=== PATIENT | female | born 1940 | race African-American/Black ===

== ENCOUNTER 2020-02-07 06:45 | Inpatient (IN) | payer MEDICARE, BC ==
[~2020-02-07] VITALS: Ht 167.6 cm; Wt 86.6 kg
[2020-02-07] MEDS ORDERED: AMLODIPINE BES2.5 MG ORAL (06:48)
[2020-02-07] MEDS ORDERED: HYDROXYZINE HCL10 M1 PO (06:49)
[2020-02-07] MEDS ORDERED: OMEPRAZOLE10 M1 ORAL (06:49)
[2020-02-07] MEDS ORDERED: SYNTHROID25 MCG ORAL (06:49)
--- NOTE | 2020-02-07 06:49 | Emergency Room Report ---
History of Present Illness General Chief Complaint: Overdose Source: EMS (Venkata Og MD) Present Illness HPI Disclaimer: Please note that this report is being documented using DRAGON technology. This can lead to erroneous entry secondary to incorrect interpretation by the dictating instrument. HPI: 79-year-old female presents for evaluation of altered mental status and possible overdose. According to EMS, daughter called from home stating her mother has been increasingly confused and depressed since 8 PM last night. She is concerned she may have overdosed on tramadol which she takes for her fibromyalgia pain as she goes unable to find the bottle. Also reports taking an unknown amount of Tylenol 500 mg tablets last night. No reported vomiting, fevers. The patient is emotional, crying on arrival and refusing to answer questions. Per EMS vital signs were stable en route and the patient was initially talking to them. She arrives with a wristband from a nearby hospital reportedly hospitalized last week for fibromyalgia pain. Patient is not answering any questions at this time, crying, complaining of body wide pain. No reported prior suicidal attempts. PMH: Fibromyalgia, hypertension PSH: Left knee repair Allergies: Insulin Social Hx: Could not obtain from patient (Venkata Og MD) Allergies: Coded Allergies: PENICILLINS (Verified Allergy, Unknown, 02/07/20) COVID-19 Screening Contact w/high risk pt: No Recent Travel to affected area: No Experienced COVID-19 symptoms?: No COVID-19 Testing performed WIRELESS SALES ASSOCIATE: No (Venkata Og MD) Review of Systems All Other Systems: limited - Patient refusing to answer questions (Venkata Og MD) Physical Exam Vital Signs Date Time Temp Pulse Resp B/P (MAP) Pulse Ox O2 Delivery O2 Flow Rate FiO2 02/07/20 06:34 156/93 (114) General: Awake and alert, tearful and emotional HEENT: NC/AT. EOMI. Cardiovascular: RRR. S1 and S2 normal. No murmur appreciated Resp: Normal work of breathing. No cough, wheezing or crackles appreciated Abdomen: Abdomen is soft, nondistended. Nontender Skin: Intact. Scar over left knee is clean dry and intact MSK: Normal tone and bulk. Moving all extremities. No obvious deformity. Neuro: Awake and alert. Emotional, crying, speaking clearly though refusing to answer questions (Venkata Og MD) Medical Decision Making Diagnostic Impression: Primary Impression: Depression Additional Impressions: Suicidal ideation UTI (urinary tract infection) ER Course Is a 79-year-old female presenting by EMS from home over altered mental status since 8 PM last night and concern over possible overdose on tramadol and Tylenol.Patient arrives awake and alert though emotional. She is in no respiratory distress, no apnea and arrives with stable vital signs. Police have placed patient on a 5150 hold. Will obtain broad labs, EKG as part of toxicologic work-up. Will attempt to obtain additional information from daughter. 0715: Patient became agitated, ripping out IV lines and combative with staff. She was treated with intramuscular Haldol with good effect and is now calm. She remains emotional stating that she has severe depression and wants to due to her constant pain. She has no specific plan to harm herself. Labs have returned within normal limits including a negative Tylenol and opiate screen. Patient is medically cleared for psychiatric evaluation of her worsening depression and suicidal thoughts. Laboratory Tests Test 02/07/20 06:51 02/07/20 07:52 White Blood Count 8.1 K/UL (4.8-10.8) Red Blood Count 5.41 M/UL (4.20-5.40) H Hemoglobin 15.9 G/DL (12.0-16.0) Hematocrit 46.4 % (37.0-47.0) Mean Corpuscular Volume 86 FL (80-99) Mean Corpuscular Hemoglobin 29.4 PG (27.0-31.0) Mean Corpuscular Hemoglobin Concent 34.3 G/DL (32.0-36.0) Red Cell Distribution Width 13.1 % (11.6-14.8) Platelet Count 306 K/UL (150-450) Mean Platelet Volume 5.4 FL (6.5-10.1) L Neutrophils (%) (Auto) 50.9 % (45.0-75.0) Lymphocytes (%) (Auto) 39.6 % (20.0-45.0) Monocytes (%) (Auto) 7.5 % (1.0-10.0) Eosinophils (%) (Auto) 0.7 % (0.0-3.0) Basophils (%) (Auto) 1.3 % (0.0-2.0) Sodium Level 141 MMOL/L (136-145) Potassium Level 4.3 MMOL/L (3.5-5.1) Chloride Level 104 MMOL/L (98-107) Carbon Dioxide Level 27 MMOL/L (21-32) Anion Gap 10 mmol/L (5-15) Blood Urea Nitrogen 14 mg/dL (7-18) Creatinine 0.6 MG/DL (0.55-1.30) Estimated Glomerular Filtration Rate > 60 mL/min (>60) Glucose Level 92 MG/DL (74-106) Calcium Level 9.5 MG/DL (8.5-10.1) Total Bilirubin 0.7 MG/DL (0.2-1.0) Aspartate Amino Transferase (AST) 26 U/L (15-37) Alanine Aminotransferase (ALT) 23 U/L (12-78) Alkaline Phosphatase 79 U/L (46-116) Total Protein 8.4 G/DL (6.4-8.2) H Albumin 4.5 G/DL (3.4-5.0) Globulin 3.9 g/dL Albumin/Globulin Ratio 1.2 (1.0-2.7) Thyroid Stimulating Hormone (TSH) 3.755 uiU/mL (0.358-3.740) Salicylates Level 0.8 ug/mL (2.8-20) L Acetaminophen Level < 2 MCG/ML (10-30) L Serum Alcohol < 3 mg/dL Urine Color Pale yellow Urine Appearance Clear Urine pH 7 (4.5-8.0) Urine Specific Mallory 1.010 (1.005-1.035) Urine Protein 2+ (NEGATIVE) H Urine Glucose (UA) Negative (NEGATIVE) Urine Ketones 1+ (NEGATIVE) H Urine Blood Negative (NEGATIVE) Urine Nitrite Negative (NEGATIVE) Urine Bilirubin Negative (NEGATIVE) Urine Urobilinogen 1 MG/DL (0.0-1.0) H Urine Leukocyte Esterase 1+ (NEGATIVE) H Urine RBC 0 /HPF (0 - 2) Urine WBC 5-10 /HPF (0 - 2) H Urine Squamous Epithelial Cells Few /LPF (NONE/OCC) Urine Bacteria Few /HPF (NONE) Urine Opiates Screen Negative (NEGATIVE) Urine Barbiturates Screen Negative (NEGATIVE) Phencyclidine (PCP) Screen Negative (NEGATIVE) Urine Amphetamines Screen Negative (NEGATIVE) Urine Benzodiazepines Screen Negative (NEGATIVE) Urine Cocaine Screen Negative (NEGATIVE) Urine Marijuana (THC) Screen Negative (NEGATIVE) (Venkata Og MD) ER Course Please refer to the initial note for the history exam and presentation at this time given the patient's age and complaints Given the lack of any Appropriate disposition patient does require inpatient care for further IV antibiotics as the patient is not able to be medically cleared Further hydration Free T4 will also be evaluated Patient initiated on antibiotics and admitted with a sitter for further care Labs Test 02/07/20 06:51 02/07/20 07:52 White Blood Count 8.1 K/UL (4.8-10.8) Red Blood Count 5.41 M/UL (4.20-5.40) Hemoglobin 15.9 G/DL (12.0-16.0) Hematocrit 46.4 % (37.0-47.0) Mean Corpuscular Volume 86 FL (80-99) Mean Corpuscular Hemoglobin 29.4 PG (27.0-31.0) Mean Corpuscular Hemoglobin Concent 34.3 G/DL (32.0-36.0) Red Cell Distribution Width 13.1 % (11.6-14.8) Platelet Count 306 K/UL (150-450) Mean Platelet Volume 5.4 FL (6.5-10.1) Neutrophils (%) (Auto) 50.9 % (45.0-75.0) Lymphocytes (%) (Auto) 39.6 % (20.0-45.0) Monocytes (%) (Auto) 7.5 % (1.0-10.0) Eosinophils (%) (Auto) 0.7 % (0.0-3.0) Basophils (%) (Auto) 1.3 % (0.0-2.0) Sodium Level 141 MMOL/L (136-145) Potassium Level 4.3 MMOL/L (3.5-5.1) Chloride Level 104 MMOL/L (98-107) Carbon Dioxide Level 27 MMOL/L (21-32) Anion Gap 10 mmol/L (5-15) Blood Urea Nitrogen 14 mg/dL (7-18) Creatinine 0.6 MG/DL (0.55-1.30) Estimat Glomerular Filtration Rate > 60 mL/min (>60) Glucose Level 92 MG/DL (74-106) Calcium Level 9.5 MG/DL (8.5-10.1) Total Bilirubin 0.7 MG/DL (0.2-1.0) Aspartate Amino Transf (AST/SGOT) 26 U/L (15-37) Alanine Aminotransferase (ALT/SGPT) 23 U/L (12-78) Alkaline Phosphatase 79 U/L (46-116) Total Protein 8.4 G/DL (6.4-8.2) Albumin 4.5 G/DL (3.4-5.0) Globulin 3.9 g/dL Albumin/Globulin Ratio 1.2 (1.0-2.7) Thyroid Stimulating Hormone (TSH) 3.755 uiU/mL (0.358-3.740) Salicylates Level 0.8 ug/mL (2.8-20) Acetaminophen Level < 2 MCG/ML (10-30) Serum Alcohol < 3 mg/dL Urine Color Pale yellow Urine Appearance Clear Urine pH 7 (4.5-8.0) Urine Specific Mallory 1.010 (1.005-1.035) Urine Protein 2+ (NEGATIVE) Urine Glucose (UA) Negative (NEGATIVE) Urine Ketones 1+ (NEGATIVE) Urine Blood Negative (NEGATIVE) Urine Nitrite Negative (NEGATIVE) Urine Bilirubin Negative (NEGATIVE) Urine Urobilinogen 1 MG/DL (0.0-1.0) Urine Leukocyte Esterase 1+ (NEGATIVE) Urine RBC 0 /HPF (0 - 2) Urine WBC 5-10 /HPF (0 - 2) Urine Squamous Epithelial Cells Few /LPF (NONE/OCC) Urine Bacteria Few /HPF (NONE) Urine Opiates Screen Negative (NEGATIVE) Urine Barbiturates Screen Negative (NEGATIVE) Phencyclidine (PCP) Screen Negative (NEGATIVE) Urine Amphetamines Screen Negative (NEGATIVE) Urine Benzodiazepines Screen Negative (NEGATIVE) Urine Cocaine Screen Negative (NEGATIVE) Urine Marijuana (THC) Screen Negative (NEGATIVE) (Diana Kerr DO) EKG Diagnostic Results EKG Time: 07:18 Rate: normal Rhythm: NSR ST Segments: no acute changes Other Impression A lot of motion artifact makes it difficult to interpret however there is no obvious ST segment changes though there is a left axis deviation (Venkata Og MD) Rhythm Strip Diag. Results Rhythm Strip Time: 07:18 EP Interpretation: yes Rate: 80s Rhythm: NSR, other - Moderate motion artifact (Venkata Og MD) EP Interpretation: yes Rate: 77 Rhythm: NSR, no PVC's, no ectopy (Diana Kerr DO) Last Vital Signs Date Time Temp Pulse Resp B/P (MAP) Pulse Ox O2 Delivery O2 Flow Rate FiO2 02/07/20 06:34 156/93 (114) (Venkata Og MD) Status: improved (Diana Kerr DO) Disposition: ADMITTED INPATIENT Condition: Serious Venkata Og MD February 07, 2020 06:49 Diana Kerr DO February 07, 2020 14:31
--- NOTE | 2020-02-07 06:57 | NUR ---
ED Nurse Note: pt brought into ED from home via [facility]. per EMS, pts daughter noticed pt acting "strangely" since 1999 last PM, she checked pts meds and noticed that pt was missing pills of tramadol and tylenol, unk amount, unk dose. pt presents to ED tearful, stating that she is in pain and that she wanted the EMS to "drop her off in the ocean." pt is accompanied by [employer] officer Dudley parra # [id number] who have placed her on a 5150. pt placed on classroom monitor, safety precautions initiated
--- NOTE | 2020-02-07 06:58 | NUR ---
ED Nurse Note: pt does not disclose what happened, does not admit to ingesting anything. pt only repeats that she is in "pain all over" and that she wants to be taken to the ocean. pt has a wrist band from a hospital in [place] from 01/29.
[2020-02-07] MEDS ORDERED: Haloperidol 5mg/ml Inj IM ONE (07:00)
[2020-02-07 07:01] VITALS: BP 148/82
[2020-02-07 07:06] LABS: BASOPHILS % (AUTO) 1.3 % (0.0-2.0); EOSINOPHILS % (AUTO) 0.7 % (0.0-3.0); HEMATOCRIT 46.4 % (37.0-47.0); HEMOGLOBIN 15.9 G/DL (12.0-16.0); LYMPHOCYTES % (AUTO) 39.6 % (20.0-45.0); MEAN CORPUSCULAR VOLUME 86 FL (80-99); MONOCYTES % (AUTO) 7.5 % (1.0-10.0); NEUTROPHILS % (AUTO) 50.9 % (45.0-75.0); PLATELET COUNT 306 K/UL (150-450); RED BLOOD COUNT 5.41 M/UL (4.20-5.40); RED CELL DISTRIBUTION WIDTH 13.1 % (11.6-14.8); WHITE BLOOD COUNT 8.1 K/UL (4.8-10.8)
--- NOTE | 2020-02-07 07:10 | NUR ---
HAND-OFF: Report given to RICARDO miller.
--- NOTE | 2020-02-07 07:12 | NUR ---
ED Nurse Note: breakfast ordered for pt
--- NOTE | 2020-02-07 07:14 | NUR ---
PT BELONGINGS IN LOCKER #3
--- NOTE | 2020-02-07 07:15 | NUR ---
ED Nurse Note: Received patient in bed, patient on a water pump operator. patient is alert awake, states her name, does not answer any other question. patient is guarded. patient states "I want to go to the ocean." patient is on a hospital gown. patient has her own glasses with her.
[2020-02-07 07:17] LABS: ANION GAP 10 mmol/L (5-15); BLOOD UREA NITROGEN 14 mg/dL (7-18); CALCIUM 9.5 MG/DL (8.5-10.1); CARBON DIOXIDE 27 MMOL/L (21-32); CHLORIDE 104 MMOL/L (98-107); CREATININE 0.6 MG/DL (0.55-1.30); POTASSIUM 4.3 MMOL/L (3.5-5.1); SODIUM 141 MMOL/L (136-145)
[2020-02-07 07:31] LABS: ALANINE AMINOTRANSFERASE 23 U/L (12-78); ALBUMIN 4.5 G/DL (3.4-5.0); ALBUMIN/GLOBULIN RATIO 1.2 (1.0-2.7); ALKALINE PHOSPHATASE 79 U/L (46-116); ASPARTATE AMINO TRANSFERASE 26 U/L (15-37); BILIRUBIN,TOTAL 0.7 MG/DL (0.2-1.0)
--- NOTE | 2020-02-07 07:35 | NUR ---
ED Nurse Note: EKG done at bedside. patient refuses to get straight cath. patient refuses to give urine sample at this time. notified to Dr. Og.
--- NOTE | 2020-02-07 07:52 | NUR ---
ED Nurse Note: patient agreed to get a straight cath. urine sent to lab. patient states she wants to call her daughter "Ashely" but unable to due to patient does not know the number and number not on the chart. no visitor in the waiting room. patient and charge nurse made aware about this.
[2020-02-07 08:15] LABS: APPEARANCE,URINE CLEAR; BILIRUBIN, URINE NEGATIVE (NEGATIVE); COLOR,URINE PALE YELLOW; GLUCOSE, URINE (UA) NEGATIVE (NEGATIVE); KETONES,URINE 1+ (NEGATIVE); LEUKOCYTE ESTERASE ,URINE 1+ (NEGATIVE); NITRITE,URINE NEGATIVE (NEGATIVE); PH,URINE 7 (4.5-8.0); PROTEIN,URINE 2+ (NEGATIVE); UROBILINOGEN,URINE 1 MG/DL (0.0-1.0)
--- NOTE | 2020-02-07 08:59 | NUR ---
ED Nurse Note: patient provided with wash clothes, water, and klinex as requested. patient's breakfast tray delivered.
[2020-02-07 09:36] VITALS: BP 160/85
[2020-02-07 12:44] VITALS: BP 169/95
--- NOTE | 2020-02-07 12:45 | NUR ---
ED Nurse Note: patient is resting in bed. telephone provided to the patient so that she can talk to her daughter. patient on a satellite project site monitor. lunch tray provided.
--- NOTE | 2020-02-07 12:54 | NUR ---
ED Nurse Note: Michelle sister [phone]
--- NOTE | 2020-02-07 13:51 | NUR ---
ED Nurse Note: patient provided with bedside commode.
[2020-02-07] MEDS ORDERED: cefTRIAXone 1 GM in NS 55 ML IVPB ONE (14:30)
[2020-02-07] MEDS ORDERED: cefTRIAXone 1 GM in D5W 55 ML IVPB SCH (15:15)
--- NOTE | 2020-02-07 15:55 | NUR ---
ED Nurse Note: checked with Dr. Kerr regarding patient allergic to penicillin. perDr. Kerr, he will change the order.
--- NOTE | 2020-02-07 16:30 | NUR ---
NURSE NOTES: Handoff received from Elena SILVA. Patient transferred from ER to 3E safely and in stable condition via gurney. Patient is awake and alert, no sign of distress noted. Right hand IV is patent and asymptomatic. Patient's belongings were verified. SitSpear CNA at bedside. Patient is AxO 3 and is currently calm. No reports of pain. Bed is low and locked, side rails up x3, call light is within reach.
--- NOTE | 2020-02-07 16:30 | NUR ---
ED Nurse Note: report given to Jaime Cerna, endorsed all plan of care to Jaime CERNA. patient transferred to with all of her belongings with technical illustratorabdulaziz Strauss.
[2020-02-07 16:34] VITALS: BP 140/83
--- NOTE | 2020-02-07 17:30 | NUR ---
NURSE NOTES: Left a message for Dr. Robertson regarding patient's home meds, code status, and social media intern consult. Waiting call back.
[2020-02-07] MEDS: NS w/KCl 20mEq 1000ml 1,000 ML IV SCH (18:13)
--- NOTE | 2020-02-07 19:00 | NUR ---
NURSE NOTES: Noticed lift side facial drooping and drooling, generalized weakness and change in speech pattern. Patient reported chest pain. Vital signs: BP 172/93, HR is 95, temp: 97.9, RA 97%, blood sugar 113. Respiratory rate 20. Initiated HAND TURNER, contacted Dr. Robertson and left a message.
--- NOTE | 2020-02-07 19:15 | NUR ---
NURSE NOTES: STAT EKG, CT head and Troponin level ordered as DISPLAY SCREEN FABRICATOR protocol.
--- NOTE | 2020-02-07 19:35 | NUR ---
NURSE'S NOTES: SLURRY WORKER CALLED FOR THIS PATIENT AT 1902 FOR NEW ONSET LEFT FACIAL DROOP, DROOLING, C/O LEFT ARM, CHEST PAIN, LEFT SIDED WEAKNESS. STAT CT HEAD, EKG PER SLURRY WORKER. INCIDENT RELAYED TO DR KAMINSKI WHO ORDERED ASIDE FOR STAT CT HEAD TRANSFER PATIENT TO [facility]. PATIENT TO GO TO RM 239-[address] PER HOUSE RICKY CARIAS; ROOM READY; INFORMED CRISTY, PRIMARY RN FOR THIS PATIENT. VS STABLE EXCEPT FOR BP WHICH WAS 172/93.
[2020-02-07] MEDS ORDERED: Aspirin Baby 81mg ORAL SCH (19:40)
--- NOTE | 2020-02-07 19:40 | NUR ---
NURSE NOTES: Report received from RICARDO Odonnell. Observed pt lying in the bed, awake, A/O x3. SR on cut out worker. On 2L NC. Neuro check done, able to answer questions. EYES CHERYL. able to swallow sip of water, no coughing, speech slurred but understandable ,able to smile, noted tongue tilted slightly on left side. able to grab both hands, raise right arm but was not able to raise left arm, stating pt has sore on left arm, was able to move her feet and feel sensation. Regarding suicidal thought, when asked, pt said she is not sure about harming herself and there is no plan at this time, sitter at this time noted. Head CT checked, no acute process noted. IV on R H 22G, running NS with 20KCL at 75cc/hr. Bed in the lowest position. Side rails up x3. Will continue to monitor.
--- NOTE | 2020-02-07 19:51 | Diagnostic Imaging Report ---
EXAM: CT Head Without Intravenous Contrast CLINICAL HISTORY: ALOC TECHNIQUE: Axial computed tomography images of the head/brain without intravenous contrast. CTDI is 53 mGy and DLP is 992 mGy-cm. One or more of the following dose reduction techniques were used: automated exposure control, adjustment of the mA and/or kV according to patient size, use of iterative reconstruction technique. COMPARISON: No relevant prior studies available. FINDINGS: Brain: No intracranial hemorrhage, mass-effect, edema, or acute cortical infarct. Chronic microvascular ischemic changes. Parenchymal atrophy more pronounced within the cerebellum right greater than left. Ventricles: Unremarkable. Bones/joints: Unremarkable. Soft tissues: Unremarkable. Sinuses: Unremarkable as visualized. Mastoid air cells: Unremarkable as visualized. IMPRESSION: 1. No acute abnormality. 2. Chronic microvascular ischemic changes.
[2020-02-07 20:00] VITALS: BP 141/91
[2020-02-07 20:28] VITALS: BP 172/93
[2020-02-07 20:37] LABS: ANION GAP 9 mmol/L (5-15); BASOPHILS % (AUTO) 1.2 % (0.0-2.0); BLOOD UREA NITROGEN 10 mg/dL (7-18); CALCIUM 9.1 MG/DL (8.5-10.1); CARBON DIOXIDE 28 MMOL/L (21-32); CHLORIDE 105 MMOL/L (98-107); CREATININE 0.8 MG/DL (0.55-1.30); EOSINOPHILS % (AUTO) 0.2 % (0.0-3.0); HEMATOCRIT 46.2 % (37.0-47.0); HEMOGLOBIN 14.6 G/DL (12.0-16.0); LYMPHOCYTES % (AUTO) 20.8 % (20.0-45.0); MEAN CORPUSCULAR VOLUME 92 FL (80-99); MONOCYTES % (AUTO) 9.7 % (1.0-10.0); NEUTROPHILS % (AUTO) 68.1 % (45.0-75.0); PLATELET COUNT 308 K/UL (150-450); POTASSIUM 3.9 MMOL/L (3.5-5.1); RED BLOOD COUNT 5.01 M/UL (4.20-5.40); RED CELL DISTRIBUTION WIDTH 14.7 % (11.6-14.8); SODIUM 142 MMOL/L (136-145); WHITE BLOOD COUNT 10.4 K/UL (4.8-10.8)
[2020-02-07 20:42] LABS: ALANINE AMINOTRANSFERASE 21 U/L (12-78); ALBUMIN 3.9 G/DL (3.4-5.0); ALBUMIN/GLOBULIN RATIO 1.2 (1.0-2.7); ALKALINE PHOSPHATASE 68 U/L (46-116); ASPARTATE AMINO TRANSFERASE 18 U/L (15-37); BILIRUBIN,TOTAL 0.4 MG/DL (0.2-1.0)
[2020-02-07] MEDS ORDERED: TRAMADOL HCL50 MG ORAL (23:49)
[2020-02-07] MEDS ORDERED: LINZESS145 MCG PO (23:49)
[2020-02-07] MEDS ORDERED: SENNA8.6 M2 PO (23:49)
[2020-02-07] MEDS ORDERED: COLACE100 MG ORAL (23:49)
[2020-02-07] MEDS ORDERED: LEVSIN-SL0.125 MG SL (23:49)
[2020-02-07] MEDS ORDERED: LEXAPRO10 MG ORAL (23:49)
[2020-02-07] MEDS ORDERED: PRILOSEC OTC20 MG ORAL (23:49)
[2020-02-07] MEDS ORDERED: ZOFRAN4 M3 ORAL (23:49)
[2020-02-07] MEDS ORDERED: AMLODIPINE BESY10 MG ORAL (23:49)
[2020-02-07] MEDS ORDERED: ATARAX25 MG ORAL (23:49)
[2020-02-07] MEDS ORDERED: ASPIRIN EC81 MG ORAL (23:49)
[2020-02-07] MEDS ORDERED: MIRALAX17 G2 ORAL (23:49)
[2020-02-08] VITALS: BP 155/90
[2020-02-08] MEDS ORDERED: Sennosides 8.6mg tab ORAL PRN (01:00)
[2020-02-08] MEDS: Miralax 17gm pkt ORAL SCH ×2 (01:00→20:03)
--- NOTE | 2020-02-08 01:07 | NUR ---
NURSE NOTES: Notified regarding pt status, new order received, will be carried out.
[2020-02-08] MEDS ORDERED: Metoprolol Tartrate 5mg/5ml Inj IVP SCH (02:30)
--- NOTE | 2020-02-08 03:00 | NUR ---
NURSE NOTES: Noted pt drooling, bp of 178/111 noted. noted slurred speech, sticking her tongue out intermittently. pt sates she feels choking. O2 NC applied, sat at 98% noted. Notified Dr. Hernández regarding pt status, new order received and carried out. After metoprolol 5mg IVP, BP noted to be 130/76, HR 75. pt appears to be calm at this time. Will continue to monitor.
[2020-02-08 04:05] VITALS: BP 106/67
[2020-02-08] MEDS: NS w/KCl 20mEq 1000ml 1,000 ML IV SCH ×3 (04:49→20:03)
--- NOTE | 2020-02-08 07:19 | NUR ---
HAND-OFF: Report given to RICARDO Kuhn. No suicidal thought at this time.
--- NOTE | 2020-02-08 07:24 | NUR ---
NURSE NOTES: Received bedside report from Arely SILVA. Pt. noted with sitter from truck supervisor. No sign of distress. No c/o pain at present. IV at right hand #22g. in placed patent/intact running NS with 20meq Kcl at 75cc/hr. Asked pt. if she is thinking of harming herself, pt. denies it. Bed in low position, locked. Bed alarm on. Maintained door open. Will cont. to monitor.
[2020-02-08 08:00] VITALS: BP 146/82
[2020-02-08 08:15] LABS: CHOLESTEROL 264 MG/DL (< 200); HDL CHOLESTEROL 105 MG/DL (40-60); TRIGLYCERIDES 48 MG/DL (30-150)
[2020-02-08] MEDS: Aspirin EC 81mg tab ORAL SCH (09:25)
[2020-02-08 12:00] VITALS: BP 141/73
--- NOTE | 2020-02-08 12:30 | History and Physical Report ---
DATE OF ADMISSION: 02/07/2020 CHIEF COMPLAINT: Depression, possible tramadol overdose. HISTORY OF PRESENT ILLNESS: The patient is a 79-year-old female. She has a history of hypertensive heart disease, fibromyalgia, osteoarthritis, who presented with complaints of depression and a possible tramadol overdose. The patient denies any chest pain or shortness of breath. No numbness or focal weakness. She was admitted initially because of possible overdose and severe depression last night developed acute onset of facial droop, drooling and slurred speech. Head CT was unremarkable. She is now transferred to a monitored bed. She is awake, alert, and oriented x3. She is still dysarthric. She denies any dizziness or vertigo. PAST MEDICAL HISTORY: As above. PAST SURGICAL HISTORY: Includes cholecystectomy, left knee replacement. CURRENT MEDICATIONS: Reconciled and reviewed. ALLERGIES: Include penicillin. FAMILY HISTORY: Noncontributory. SOCIAL HISTORY: There is no known history of tobacco, ethanol, or drugs. FAMILY HISTORY: Significant for cancer. REVIEW OF SYSTEMS: GENERAL: No fevers or chills. HEENT: No headaches or visual changes. CARDIOPULMONARY: No chest pain or shortness of breath. GASTROINTESTINAL: No nausea or vomiting. GENITOURINARY: No urgency or frequency. MUSCULOSKELETAL: No joint pain or swelling. NEUROLOGIC: No evidence of seizures. PHYSICAL EXAMINATION: VITAL SIGNS: Temperature 98.5, pulse 59, respirations 16, blood pressure 155/90. GENERAL: The patient is a well-developed, well-nourished, in no apparent distress. HEENT: Head was normocephalic, atraumatic. Pupils are equal, round, and reactive to light. Extraocular movements are intact. Sclerae anicteric. Oropharynx is clear. NECK: Supple. No bruits. HEART: Regular rate and rhythm without murmurs, rubs, or gallops. LUNGS: Clear to auscultation bilaterally. ABDOMEN: Soft, nontender, nondistended. EXTREMITIES: Without clubbing, cyanosis, or edema. LABORATORY AND DIAGNOSTIC DATA: White count 8, hemoglobin 15. Coags normal. Sodium 142, potassium 3.9, creatinine was 0.8. CT of the head showed chronic microvascular changes. ASSESSMENT: This is a pleasant female, admitted with complaints of depression, fibromyalgia, and hypertension, who developed acute onset of dysarthria suspect secondary to a stroke. PLAN: Antiplatelet treatment with aspirin. Check lipid panel. Check carotid duplex and 2D echo. We will order MRI of the brain. Neurology, Cardiology, and Psychiatry consultations will be obtained. Juan Parada M.D. DR: COSME JOB#: [id number] CC:
[2020-02-08] MEDS ORDERED: cefTRIAXone 1 GM in D5W 55 ML IVPB SCH (14:00)
[2020-02-08 16:00] VITALS: BP 120/75
[2020-02-08] MEDS ORDERED: Tubing IV Secondary IV ONE (18:02)
--- NOTE | 2020-02-08 19:15 | NUR ---
HAND-OFF: Report given to Paty SILVA. Pt. remain stable.
--- NOTE | 2020-02-08 19:19 | NUR ---
NURSE NOTES: Received report from RICARDO Kuhn, pt. in bed awake- watching television- appears to be A/O x's3-4 forgetful at times- but able to make needs known, no signs or symptoms of acute cardiac or respiratory distress noted, bed alarm on, side rails up x's3 and safety brakes engaged, pt. appears to be sating well on 2L NC- no distress noted, pt. appears to be clean and dry, pt.a baker to ask for assist when ambulating, pt. has bed valdez at bed side and within easy reach- aware to ask for assist, Rt. hand 22G IV intact and patent running NS w/20KCL at 75cc/hr, safety measures continued, will continue with plan of care.
[2020-02-08 20:00] VITALS: BP 146/75
[2020-02-08] MEDS: Heparin 5000 units/ml inj SUBQ SCH (20:05)
--- NOTE | 2020-02-08 23:01 | NUR ---
NURSE NOTES: per Jonathan he will let me know of ETA for person coming to do Venous Duplex for pt.
--- NOTE | 2020-02-08 23:12 | NUR ---
NURSE NOTES: Left message for DR. Hernández to see if VD can wait till tomorrow per radiology as she Sybil is shoe reconditioner- awaiting for call back from doctor.
--- NOTE | 2020-02-08 23:30 | NUR ---
NURSE NOTES: pt. appears to be resting in bed- using oral suction and watching television- will continue to monitor pt. and with plan of care.
[2020-02-09] VITALS: BP 143/63
[2020-02-09 04:00] VITALS: BP 145/67
--- NOTE | 2020-02-09 06:53 | NUR ---
HAND-OFF: Report given to Tae Russell RN, pt. remain stable and no signs of distress noted- aware to f/u on Venous Duplex.
--- NOTE | 2020-02-09 07:25 | NUR ---
NURSE NOTES: Received report from RICARDO Newman. Pt in bed awake and orientedx3 and forgetful. IV site in right hand 22G patent and asymptomatic, running with NS w/KCL 20mEq @75ml/hr. Puree wick applied. No signs of suicidal ideation noted. On 2LPM via N/C Will continue plan of care.
[2020-02-09 08:00] VITALS: BP 154/86
--- NOTE | 2020-02-09 08:00 | Progress Note ---
DATE: 02/08/2020 CARDIOLOGY PROGRESS NOTE SUBJECTIVE: The patient feels better today. Denies any suicidal ideation. Last evening, there were two episodes of facial weakness, slurring of her speech and associated tachycardia and significant blood pressure elevations up to 180/110. The patient was given intravenous beta-jazmyn at that time with improvement in blood pressure. There was some transient bradycardia that was asymptomatic subsequently. The patient has no speech impairment this morning. CT scan obtained last night revealed no acute process. PHYSICAL EXAMINATION: VITAL SIGNS: Now, blood pressure 120/75, pulse 57, respirations 20, afebrile. Monitored rhythm sinus and sinus bradycardia with atrial arrhythmia. HEENT: Conjunctivae are pink. NECK: No bruits. LUNGS: Clear. CARDIAC: Regular. Normal S1, S2 with no murmur. ABDOMEN: Soft. EXTREMITIES: There is 1+ edema on the left with healed surgical scar on left knee. NEUROLOGIC: Nonfocal to exam at this time. LABORATORY DATA: Total cholesterol was 264, LDL was 134, HDL was 105. TSH was 4.2. BUN 10, creatinine 0.8, potassium 3.9. Troponin negative on admission. IMPRESSION: 1. TIA. 2. Hypothyroidism. 3. Labile hypertension/hypertensive urgency. 4. Atrial arrhythmias. 5. Bradyarrhythmias. 6. Depression. 7. Dyslipidemia. 8. Left lower extremity edema, mostly nonpitting. PLAN: Anti-platelet therapy. Cardiac monitoring. Titrate antihypertensive regimen including beta-jazmyn. Add statin. Advance thyroid dosing. Venous duplex scan, carotid duplex scan, echocardiogram. Marquise Hernández M.D. DR: TERESA JOB#: [id number] CC:
--- NOTE | 2020-02-09 08:15 | Consultation ---
DATE OF CONSULTATION: 02/07/2020 CARDIOLOGY CONSULTATION CONSULTING PHYSICIAN: Marquise Hernández MD. REQUESTING PHYSICIAN: Juan Parada MD. REASON FOR CONSULTATION: Labile hypertension and possible tramadol overdose. HISTORY OF PRESENT ILLNESS: This is a 79-year-old female. She presented to the emergency room complaining of depression and possible overdose of a tramadol. She was admitted for observation and suicidal ideation. However later developed facial droop, drooling, slurring of her speech, and blood pressure elevation. The patient denied chest pain or shortness of breath. She denied any prior stroke. She had an urgent CAT scan revealing no acute process, but generalized white matter disease. PAST MEDICAL HISTORY: Fibromyalgia, osteoarthritis, depression, hypertension and hypertensive heart disease, prior cholecystectomy, status post left total knee replacement, hypothyroidism. ALLERGIES: Penicillin. MEDICATIONS: Reviewed and reconciled. FAMILY HISTORY: Notable for cancers in some first-degree relatives. SOCIAL HISTORY: Negative for smoking, alcohol, or substance abuse. REVIEW OF SYSTEMS: No fevers or chills. No cough or sputum production. No history of COVID-19 exposure. No history of prior stroke. No change in bowel habits. No history of myocardial infarction or exertional chest pain. No history of diabetes. She is on thyroid replacement. PHYSICAL EXAMINATION: VITAL SIGNS: As noted in the medical record, blood pressure up to 180/110. HEENT: Normocephalic, atraumatic. Conjunctivae are pink. Arcus senilis. Oropharynx clear. NECK: Supple. Jugular venous pressure normal. No bruits. LUNGS: Clear. CARDIAC: Regular. Normal S1, S2 with a fourth heart sound. ABDOMEN: Soft, nontender. No bruits. EXTREMITIES: No clubbing or cyanosis. Left knee surgical scar well healed. There is 1+ nonpitting edema on the left. No calf tenderness. NEUROLOGIC: Reveals symmetric strength. No current drooping of the face is noted. LABORATORY AND DIAGNOSTIC DATA: EKG, sinus arrhythmia with PAC. Laboratories noted. IMPRESSION: 1. TIA. 2. Hypertensive urgency. 3. Atrial arrhythmia. 4. Depression. 5. Asymmetric leg swelling in extremity with prior surgical intervention. PLAN: Antiplatelet therapy. Lipid panel. Check thyroid panel. Cardiac monitoring. Optimize blood pressure control. Check carotid duplex, venous duplex scan, and echocardiogram. Further recommendations will follow. Marquise Enedelia Hernández DR: TERESA JOB#: [id number] CC:
--- NOTE | 2020-02-09 08:57 | General Progress Note ---
Assessment/Plan Problem List: (1) CVA (cerebral vascular accident) ICD Codes: I63.9 - Cerebral infarction, unspecified SNOMED: 524396789 (2) Depression ICD Codes: F32.9 - Major depressive disorder, single episode, unspecified SNOMED: 84345485 (3) Suicidal ideation ICD Codes: R45.851 - Suicidal ideations SNOMED: 1628947 (4) UTI (urinary tract infection) ICD Codes: N39.0 - Urinary tract infection, site not specified SNOMED: 71430894 Status: stable, progressing Assessment/Plan: antiplt rx mri brain statin rx pt/ot/st echo carotids d/w dtr poc x 15 mins Subjective ROS Limited/Unobtainable: No Constitutional: Reports: malaise, weakness HEENT: Reports: no symptoms Cardiovascular: Reports: no symptoms Respiratory: Reports: no symptoms Gastrointestinal/Abdominal: Reports: no symptoms Genitourinary: Reports: no symptoms Neurologic/Psychiatric: Reports: other - dysarthria Endocrine: Reports: no symptoms Hematologic/Lymphatic: Reports: no symptoms Allergies: Coded Allergies: PENICILLINS (Verified Allergy, Unknown, 02/07/20) All Systems: reviewed and negative except above Subjective no new complaints. speech more fluent this am. no fever or chills. no chest pain no weakness or numbness. Objective Last 24 Hour Vital Signs Date Time Temp Pulse Resp B/P (MAP) Pulse Ox O2 Delivery O2 Flow Rate FiO2 02/09/20 04:00 2.0 02/09/20 04:00 98.1 75 18 145/67 (93) 98 02/09/20 04:00 63 02/09/20 04:00 Nasal Cannula 2.0 02/09/20 00:00 62 02/09/20 00:00 97.9 78 20 143/63 (89) 98 02/09/20 00:00 Nasal Cannula 2.0 02/09/20 00:00 2.0 02/08/20 20:02 73 146/75 02/08/20 20:00 2.0 02/08/20 20:00 Nasal Cannula 2.0 02/08/20 20:00 71 02/08/20 20:00 97.7 73 20 146/75 (98) 96 02/08/20 16:00 2.0 5/31/20 16:00 57 02/08/20 16:00 Nasal Cannula 2.0 02/08/20 16:00 98.1 90 20 120/75 (90) 95 02/08/20 12:00 2.0 02/08/20 12:00 99.0 60 20 141/73 (95) 99 02/08/20 12:00 Nasal Cannula 2.0 02/08/20 11:31 48 02/08/20 09:25 102 146/82 02/08/20 09:25 102 146/82 Intake and Output 02/08/20 02/09/20 19:00 07:00 Intake Total 1275 ml 895 ml Output Total 350 ml 475 ml Balance 925 ml 420 ml Intake Oral 450 ml IV Total 825 ml 895 ml Output Urine Total 350 ml 475 ml # Voids 3 2 Height (Feet): 5 Height (Inches): 6.00 Weight (Pounds): 213 General Appearance: WD/WN, alert, thin EENT: PERRL/EOMI, normal ENT inspection Neck: non-tender, normal alignment, supple, normal inspection Cardiovascular: normal peripheral pulses, normal rate Respiratory/Chest: chest wall non-tender, lungs clear, normal breath sounds, no respiratory distress, no accessory muscle use Abdomen: normal bowel sounds, non tender, soft, no organomegaly, no mass Edema: no edema noted Arm (L), no edema noted Arm (R), no edema noted Leg (L), no edema noted Leg (R), no edema noted Pedal (L), no edema noted Pedal (R), no edema noted Generalized Neurologic: no motor/sensory deficits, alert, responsive Lymphatic: normal anterior cervical (L), normal anterior cervical (R) Juan Parada MD Feb 09, 2020 08:57
[2020-02-09] MEDS: Aspirin EC 81mg tab ORAL SCH (09:29)
[2020-02-09] MEDS: Heparin 5000 units/ml inj SUBQ SCH ×2 (09:32→20:57)
[2020-02-09] MEDS ORDERED: Sennosides 8.6mg tab ORAL PRN (10:28)
[2020-02-09] MEDS: NS w/KCl 20mEq 1000ml 1,000 ML IV SCH (10:29)
--- NOTE | 2020-02-09 11:26 | Diagnostic Imaging Report ---
Indication: Altered mental status Technique: Gonsales scale duplex images of the extracranial carotid circulation Comparison: none Findings: Bilaterally, grayscale and duplex images demonstrate atherosclerotic plaquing resulting in less than 50% diameter narrowing. Normal Doppler waveforms and flow velocities. Patent bilateral vertebral arteries, antegrade flow. Impression: Less than 50% diameter stenosis bilaterally
--- NOTE | 2020-02-09 11:31 | Consultation ---
DATE OF CONSULTATION: 02/08/2020 CONSULTING PHYSICIAN: Jaiden Lewis MD HISTORY OF PRESENT ILLNESS: This is a 79-year-old female with a history of depression, on Lexapro, was admitted to the hospital for medical stabilization. The patient is status post overdose on Tylenol. Stated that she took 7 pills of Tylenol. Denied taking any tramadol. The patient has a history of hypertension, heart disease, fibromyalgia, and arthritis as well as depression. The patient stated that she feels depressed and feeling guilty of being a burden to her daughter. The patient is pleasant, cooperative, was providing a meaningful history. She uses that she has been taking omeprazole outside of the hospital. She depressed for at least two months. She denies any conflicts with her daughter. She states her daughter is treating very . PAST PSYCHIATRIC HISTORY: Depression, on Lexapro. She denies psychiatrist. No suicidal attempt in the past. No psychiatric hospitalization. PAST MEDICAL HISTORY: 1. Hypertension. 2. Fibromyalgia. 3. Cardiac disease. ALLERGIES: Penicillin. SUBSTANCE ABUSE HISTORY: No known history of illicit drug use or alcohol. MENTAL STATUS EXAMINATION: The patient is alert, oriented times self, place, situation, and date. She is pleasant, cooperative. Mood is depressed. Affect is constricted, congruent with mood. Thought process is linear and goal oriented. Thought content, no suicidal or homicidal ideation. Cognition is intact. Insight and judgment . ASSESSMENT: [place] I Major depressive disorder. [place] II Deferred. [place] III Status post overdose. [place] IV Low. [place] V 50. PLAN: 1. The patient's Lexapro will be increased to 20 mg in the morning. 2. The patient should be discharged when medically cleared . She is not currently having any suicidal thoughts. The patient is going to be living with her niece for one month for any change of condition. 3. The patient is not an imminent danger to self or others. 4. The patient will be followed with an outpatient psychiatrist. 5. therapy. Jaiden Lewis M.D. DR: JESSICA JOB#: [id number] CC:
--- NOTE | 2020-02-09 11:39 | NUR ---
Social Work This Sw received a consult from CM due to possible overdose. Psychiatry to follow for clearance and medication, as needed. This SW met with patient who explains she took "five tylenol for the pain." Patient denied any SI with this SW and plans to discharge to home with daughter to assist as needed. Patient explains she lives with daughter, Ashely ([phone]) who is with her at all times, while patient manages her own ADLS independently, using a walker for ambulation. No other needs or concerns present at this time. Sw provided brief emotional support due to current pain.
[2020-02-09 11:47] VITALS: BP 124/84
--- NOTE | 2020-02-09 12:04 | NUR ---
CASE MANAGEMENT: REVIEW 79 YEAR OLD FEMALE BIBA FROM HOME CC: OVERDOSE SI: DRUG OVERDOSE . T 99.3 HR 101 RR 20 BP 156/93 SAT 98% NC/2L TOXICOLOGY: SALICYLATED 0.8 ACETAMINOPHEN <2 IS: ASA 81MG PO X1 LEVOFLOXACIN IV X1 CEFTRIAXONE IV X1 LOPRESSOR IV X1 HALDOL IM X1 PSYCHE EVAL PATIENT ADMITTED TO STEP DOWN UNIT 02/07/2020 DCP: PATIENT IS FROM HOME
--- NOTE | 2020-02-09 13:35 | NUR ---
NURSE NOTES: Pt verbalized nervousness for MRI. Dr. Parada paged. IV Ativan 0.5mg IV x1 ordered for Brain MRI.
[2020-02-09] MEDS ORDERED: LORazepam Inj 2mg/ml 1ml IV SCH (13:40)
--- NOTE | 2020-02-09 13:54 | Diagnostic Imaging Report ---
Indication: Left leg pain Technique: Grayscale and duplex images of the bilateral lower extremity veins Comparison: Findings: Bilaterally, grayscale and duplex images demonstrate no evidence of intraluminal thrombus. Normal phasic Doppler waveforms, demonstrating normal augmentation response and no evidence of valvular insufficiency. Greater saphenous vein(s) and tibial veins are patent. Normal compressibility. Impression: Negative for evidence of lower extremity deep venous thrombosis bilaterally
[2020-02-09] MEDS: cefTRIAXone 1 GM in D5W 55 ML IVPB SCH (14:18)
--- NOTE | 2020-02-09 14:50 | NUR ---
NURSE NOTES: Pt went to MRI via gurney with account technician.
--- NOTE | 2020-02-09 15:40 | NUR ---
NURSE NOTES: Pt returned back from MRI. paralegals reapplied.
[2020-02-09 16:00] VITALS: BP 122/69
--- NOTE | 2020-02-09 16:45 | Diagnostic Imaging Report ---
Indication: Slurred speech, history of overdose Technique: sagittal T1 fast spin echo, axial T1 FLAIR, axial T2 FLAIR, axial T2 FS PROPELLER, axial T2* GRE, axial diffusion weighted images. ADC and exponential ADC maps generated Comparison: Head CT dated 02/07/2020 Findings: No abnormal areas of restricted diffusion to suggest acute infarction. No acute hemorrhage or edema. No mass effect nor midline shift. Normal size ventricles and extra axial CSF spaces, for age. There is periventricular deep white matter high T2 signal. Visualized orbits and sinuses are unremarkable. Impression: Periventricular deep white matter high T2 signal, consistent with chronic microvascular ischemic changes. Negative for acute intracranial bleed, mass effect, or infarct
--- NOTE | 2020-02-09 19:30 | NUR ---
NURSE NOTES: Received pt from RICARDO Schroeder. pt observed resting in bed, responsive to verbal commands, AO X3-4, forgetful at times, able to make needs known. pt is on room air; no s/sx of respiratory distress noted, saturation: 97%. no s/sx of acute cardiac distress noted. Purewick noted and applied to suction. Right hand 22 G IV site is patent and intact, running NS with 20 meq KCl at 75 cc/hr. bed in lowest position and locked, siderails up X3, call light within reach. will continue to monitor.
--- NOTE | 2020-02-09 19:34 | NUR ---
HAND-OFF: Report given to RICARDO Trejo. Pt remains stable..
[2020-02-09 20:00] VITALS: BP 135/82
[2020-02-09] MEDS: Miralax 17gm pkt ORAL SCH (20:54)
--- NOTE | 2020-02-09 22:51 | Psych Consult Progress Note ---
Psychiatry Progress Note Psychiatry Progress Note Medications Current Medications Medications (Trade) Dose Ordered Sig/Alejandro Route PRN Reason Start Time Stop Time Status Last Admin Dose Admin Acetaminophen (Tylenol) 650 mg Q6H PRN ORAL For Headache 02/09/20 10:26 03/09/20 10:25 02/09/20 20:55 Amlodipine Besylate (Norvasc) 2.5 mg DAILY ORAL 02/10/20 09:00 03/09/20 08:59 Aspirin (Ecotrin) 81 mg DAILY ORAL 02/10/20 09:00 03/24/20 08:59 Ceftriaxone Sodium 1 gm/ Dextrose 55 ml @ 110 mls/hr Q24H IVPB 02/09/20 14:00 02/15/20 13:59 02/09/20 14:18 Escitalopram Oxalate (Lexapro) 20 mg DAILY ORAL 02/10/20 09:00 03/10/20 08:59 Heparin Sodium (Porcine) (Heparin 5000 units/ml) 5,000 units EVERY 12 HOURS SUBQ 02/09/20 21:00 03/24/20 20:59 02/09/20 20:57 Levothyroxine Sodium (Synthroid) 50 mcg DAILY@0630 ORAL 02/10/20 06:30 03/09/20 06:29 Metoprolol Tartrate (Lopressor) 25 mg Q12HR ORAL 02/09/20 21:00 05/08/20 08:59 02/09/20 20:54 Pantoprazole (Protonix) 40 mg DAILY ORAL 02/10/20 09:00 03/09/20 08:59 Polyethylene Glycol (Miralax) 17 gm BEDTIME ORAL 02/09/20 21:00 03/09/20 00:59 02/09/20 20:54 Potassium Chloride/Sodium Chloride 1,000 ml @ 75 mls/hr [id number] IV 02/09/20 11:00 03/08/20 10:59 02/09/20 10:29 Pravastatin Sodium (Pravachol) 20 mg BEDTIME ORAL 02/09/20 21:00 03/10/20 20:59 02/09/20 20:54 Sennosides (Senokot) 8.6 mg DAILY PRN ORAL Constipation 02/09/20 10:28 03/10/20 10:27 Neurological/Psychiatric: Reports: anxiety, depressed Allergies: Coded Allergies: PENICILLINS (Verified Allergy, Mild, 02/09/20) 10 YEARS AGO, MILD SYMPTOMS BUT NOT ANAPHYLACTIC.Pt unable to recall medication/specific reactions Objective Data Height (Feet): 5 Height (Inches): 6.00 Weight (Pounds): 213 General Appearance: WD/WN, no apparent distress, alert, alert oriented x3 Appearance: well groomed Behavior Mannerisms: good eye contact Mental Status Exam - Affect: constricted Mental Status Exam - Mood: depressed Speech: clear Mental Status Exam - Thought P: no abnormalities, logical, goal-directed, organized, coherent Mental Status Exam - Suicidal: not present Additional Comments: alert, oriented times self, place, situation, and date. She is pleasant, cooperative. Mood is depressed. Affect is constricted, congruent with mood. Thought process is linear and goal oriented. Thought content, no suicidal or homicidal ideation. Cognition is intact. Insight and judgment Fair . Assessment/Plan Status: stable, progressing Assessment/Plan: ASSESSMENT: [place] I Major depressive disorder. PLAN: 1. Lexapro 20 mg in the morning 2. provided ro/Jaiden Sahu MD Feb 09, 2020 22:51
[2020-02-10] VITALS: BP 112/65
[2020-02-10] MEDS: NS w/KCl 20mEq 1000ml 1,000 ML IV SCH ×2 (00:36→15:22)
[2020-02-10 04:00] VITALS: BP 130/70
--- NOTE | 2020-02-10 06:57 | General Progress Note ---
Assessment/Plan Problem List: (1) CVA (cerebral vascular accident) ICD Codes: I63.9 - Cerebral infarction, unspecified SNOMED: 347157511 (2) Depression ICD Codes: F32.9 - Major depressive disorder, single episode, unspecified SNOMED: 96641159 (3) Suicidal ideation ICD Codes: R45.851 - Suicidal ideations SNOMED: 4349803 (4) UTI (urinary tract infection) ICD Codes: N39.0 - Urinary tract infection, site not specified SNOMED: 45797259 Status: stable, progressing Assessment/Plan: antiplt rx mri brain reviewed statin rx pt/ot/st echo ok carotids- nonflowlimiting pt/ot psych rx Subjective ROS Limited/Unobtainable: No Constitutional: Reports: malaise, weakness HEENT: Reports: no symptoms Cardiovascular: Reports: no symptoms Respiratory: Reports: no symptoms Gastrointestinal/Abdominal: Reports: no symptoms Genitourinary: Reports: no symptoms Neurologic/Psychiatric: Reports: anxiety, depressed, emotional problems Endocrine: Reports: no symptoms Hematologic/Lymphatic: Reports: no symptoms Allergies: Coded Allergies: PENICILLINS (Verified Allergy, Mild, 02/09/20) 10 YEARS AGO, MILD SYMPTOMS BUT NOT ANAPHYLACTIC.Pt unable to recall medication/specific reactions All Systems: reviewed and negative except above Subjective "i cant move my legs." withdrawn. speech seems more fluent. mri, duplex, echo results reviewed with pt. no headaches. no cp/sob. chronic changes on mri brain. nonflow limited athersclerosis on duplex. no thormbus on echo. Objective Last 24 Hour Vital Signs Date Time Temp Pulse Resp B/P (MAP) Pulse Ox O2 Delivery O2 Flow Rate FiO2 02/10/20 04:00 Room Air 02/10/20 04:00 97.9 50 18 130/70 (90) 98 02/10/20 04:00 62 02/10/20 00:00 Room Air 02/10/20 00:00 97.3 50 18 112/65 (81) 100 02/09/20 20:54 86 135/82 02/09/20 20:00 69 02/09/20 20:00 97.7 86 20 135/82 (99) 98 02/09/20 20:00 Room Air 02/09/20 16:00 55 02/09/20 16:00 Room Air 02/09/20 16:00 97.2 68 20 122/69 (86) 97 02/09/20 12:00 Room Air 02/09/20 12:00 65 02/09/20 11:47 97.7 70 20 124/84 (97) 100 02/09/20 09:31 81 154/86 02/09/20 09:30 81 154/86 02/09/20 08:00 97.9 81 18 154/86 (108) 98 02/09/20 08:00 2.0 02/09/20 08:00 90 02/09/20 08:00 Nasal Cannula 2.0 Intake and Output 02/09/20 02/10/20 19:00 07:00 Intake Total 790 ml 945 ml Output Total 900 ml Balance -110 ml 945 ml Intake Oral 240 ml IV Total 790 ml 705 ml Output Urine Total 900 ml # Voids 2 Height (Feet): 5 Height (Inches): 6.00 Weight (Pounds): 213 General Appearance: WD/WN, no apparent distress, alert EENT: PERRL/EOMI, normal ENT inspection Neck: non-tender, normal alignment, supple Cardiovascular: normal peripheral pulses, normal rate, regular rhythm Respiratory/Chest: chest wall non-tender, lungs clear, normal breath sounds, no respiratory distress, no accessory muscle use Abdomen: normal bowel sounds, non tender, soft, no organomegaly, no mass Extremities: normal range of motion, non-tender Edema: no edema noted Arm (L), no edema noted Arm (R), no edema noted Leg (L), no edema noted Leg (R), no edema noted Pedal (L), no edema noted Pedal (R), no edema noted Generalized Neurologic: alert, responsive, motor weakness - slight weakness alexia LE- ?effort Skin: normal pigmentation Lymphatic: normal anterior cervical (L), normal anterior cervical (R) Juan Parada MD Feb 10, 2020 06:57
--- NOTE | 2020-02-10 07:30 | Progress Note ---
DATE: 02/09/2020 CARDIOLOGY PROGRESS NOTE SUBJECTIVE: Less depressed. More verbal. Speech fluent. No dysphagia. PHYSICAL EXAMINATION: VITAL SIGNS: Blood pressure 145/67, heart rate 75, respiratory rate 18. Monitor sinus rhythm with arrhythmia and rare PACs. Oxygen saturation 98% on 2 liters. LUNGS: Diminished breath sounds. No wheezing. CARDIAC: Regular rhythm rate. Normal S1, S2. ABDOMEN: Soft. EXTREMITIES: No edema. DIAGNOSTIC DATA: Venous duplex scan negative for DVT. Carotid duplex less than 50% stenosis bilaterally. IMPRESSION: 1. TIA. 2. Depression. 3. Paroxysmal atrial ectopy. 4. Sinus arrhythmia. PLAN: Anti-platelet therapy. Titrate cardiovascular regimen. Avoid orthostasis. Await MRI. Continue statin drug. Mobilize. Discharge planning to follow. Marquise Hernández M.D. DR: TERESA JOB#: [id number] CC:
--- NOTE | 2020-02-10 07:38 | NUR ---
HAND-OFF: Report given to RICARDO Reza. endorsed plan of care.
--- NOTE | 2020-02-10 07:39 | NUR ---
NURSE NOTES: Received patient in bed awake. No SOB or acute distress. IV line intact. HOB elevated. Bed locked in lowest position. Call light within reach. Will continue plan of care.
[2020-02-10 08:00] VITALS: BP 133/57
[2020-02-10] MEDS: Heparin 5000 units/ml inj SUBQ SCH ×2 (08:51→20:44)
[2020-02-10] MEDS ORDERED: Aspirin EC 81mg tab ORAL SCH (09:00)
--- NOTE | 2020-02-10 10:41 | NUR ---
NURSE NOTES: Seen by Dr Zazueta, for consult with Dr Bentley and PT evaluation. Orders noted and carried out.
--- NOTE | 2020-02-10 11:56 | NUR ---
CASE MANAGEMENT: REVIEW SI: DRUG OVERDOSE . T 97.3 HR 50 RR 18 BP 133/57 SAT 98% ROOM AIR IS: NS w/KCL IVF @ 75ML/HR CEFTRIAXONE IV Q24HR HEPARIN SUBQ Q12HR PT EVAL ST EVAL STEP DOWN UNIT STATUS DCP: PATIENT IS FROM HOME
[2020-02-10 12:00] VITALS: BP 140/75
--- NOTE | 2020-02-10 13:38 | NUR ---
CASE MANAGEMENT: AUGUSTINE PATIENT REFERRED TO [facility] [phone] FOR HOME SAFETY EVAL AND MEDICATION MANAGEMENT START OF CARE: 02/13/2020
[2020-02-10] MEDS: cefTRIAXone 1 GM in D5W 55 ML IVPB SCH (15:22)
[2020-02-10 16:00] VITALS: BP 141/86
--- NOTE | 2020-02-10 19:35 | NUR ---
NURSE NOTES: Received pt from RICARDO Reza. pt observed sitting in bed, AO X3-4, forgetful, able to communicate needs and follow verbal commands. denies pain at this time. pt is on RA, saturation: 97%. no s/sx of respiratory distress noted at this time. color television console monitor shows SR with HR of 61. no acute cardiac distress noted. RH 22 G IV site is patent and intact, running NS with 20 meq KCl at 75 cc/hr. bed in lowest position and locked, siderails up X2, call light within reach. all needs attended to. will continue to monitor.
--- NOTE | 2020-02-10 19:36 | NUR ---
HAND-OFF: Report given to Maya SILVA.
--- NOTE | 2020-02-10 19:50 | NUR ---
NURSE NOTES: pt c/o SOB, applied 2 L O2 via NC. saturation: 100%, pt positioned to high-Gonzalez's position. no s/sx of respiratory distress noted. will continue to monitor.
[2020-02-10 20:00] VITALS: BP 145/79
[2020-02-10] MEDS: Miralax 17gm pkt ORAL SCH (20:42)
--- NOTE | 2020-02-10 22:39 | NUR ---
TRANSFER TO FLOOR: Patient transferred via hospital bed to 2E, room 221-2, per MD order. pt transferred with 2 L O2 via KS. Report given to RICARDO Grossman. Belongings and medications given to receiving RN. pt remains in stable condition. no s/sx of acute distress noted. Family and or S/O informed of transfer.
[2020-02-10] MEDS ORDERED: NS w/KCl 20mEq 1000ml 1,000 ML IV SCH (22:45)
--- NOTE | 2020-02-10 22:45 | NUR ---
NURSE NOTES: Received report from RICARDO Trejo. Patient is awake lying semi-melendez's; resting comfortably. No signs of acute distress noted; denies pain at this time. AOx3-4 with periods of forgetfulness. Checked IV site, lines, and IV rate; patent and running. No erythema, bleeding, or infiltration noted. Bedside commode easily accessible. Bed at lowest position, brakes on, siderails up x3. Call light within reach. Will continue to monitor.
--- NOTE | 2020-02-10 23:13 | NUR ---
NURSE NOTES: Called Dr. Hernández regarding patient's complaint of shortness of breath despite saturating at 100% on 3L nasal cannula and requests for a breathing treatment. Awaiting callback.
--- NOTE | 2020-02-10 23:49 | NUR ---
NURSE NOTES: Received order from Dr. Hernández for Duoneb q6hr PRN. Noted and carried out.
[2020-02-11] VITALS (17 sets, daily range): BP systolic 111–158; BP diastolic 65–100
--- NOTE | 2020-02-11 00:45 | Progress Note ---
DATE: 02/10/2020 SUBJECTIVE: The patient is in bed, no acute distress noted, depressed, withdrawn, more interacting today. The patient is pleasant and cooperative, no behavior issues noted. MENTAL STATUS EXAMINATION: Alert, oriented times self, place, situation, and date. Mood is depressed. Affect is blunted. Congruent with mood. Thought process, linear and goal oriented. Thought content, no suicidal or homicidal ideation. Cognition is impaired. Insight and judgment fair. ASSESSMENT: 1. Major depressive disorder. 2. Cognitive impairment. PLAN: 1. Lexapro 20 mg in the morning. 2. . 3. The patient was provided with reality orientation and supportive therapy. Jaiden Lewis M.D. DR: Mallory JOB#: [id number] CC:
[2020-02-11] MEDS: Albuterol/Ipratropium 3ml neb HHN PRN ×2 (01:17→14:26)
--- NOTE | 2020-02-11 06:02 | NUR ---
NURSE NOTES: Patient requesting to sit on the bedside commode. Repeatedly educated patient on the importance of staying in bed since she is weak, however, patient is insisting on voiding on the bedside commode. Patient was then educated on using call light when she is finished; verbalized understanding.
[2020-02-11 06:33] LABS: BASOPHILS % (AUTO) 1.7 % (0.0-2.0); EOSINOPHILS % (AUTO) 0.7 % (0.0-3.0); HEMATOCRIT 45.2 % (37.0-47.0); HEMOGLOBIN 15.6 G/DL (12.0-16.0); LYMPHOCYTES % (AUTO) 27.4 % (20.0-45.0); MEAN CORPUSCULAR VOLUME 86 FL (80-99); MONOCYTES % (AUTO) 7.1 % (1.0-10.0); NEUTROPHILS % (AUTO) 63.1 % (45.0-75.0); PLATELET COUNT 294 K/UL (150-450); RED BLOOD COUNT 5.28 M/UL (4.20-5.40); RED CELL DISTRIBUTION WIDTH 13.1 % (11.6-14.8)
--- NOTE | 2020-02-11 06:48 | NUR ---
NURSE NOTES: Left message for Dr. Hernández to clarify with him if order for NS + 20 mEq KCl IV is supposed to run at 12.5 mls/hr. Awaiting callback.
--- NOTE | 2020-02-11 06:55 | NUR ---
SENIOR BUSINESS [employer]ER Note: Patient was found on the floor with a pillow under her head. SENIOR BUSINESS BR[employer]ER called. Patient's v/s at the time were: temp - 98.2, HR - 90, RR - 20, BP - 158/100, and O2 saturation - 94%. Blood sugar - 90. Asked patient if she hit her head and if she was in pain. According to the patient, she denies hitting her head and that she has generalized pain unrelated to incident. Neuro checks performed. Will continue to monitor patient.
--- NOTE | 2020-02-11 07:05 | NUR ---
NURSE NOTES: Notified Dr. Parada of patient being found on the floor. Was told, "I'll see the patient and put in orders for x-rays."
--- NOTE | 2020-02-11 07:08 | NUR ---
HAND-OFF: Report given to RICARDO Fletcher. Patient is awake lying semi-melendez's; resting comfortably. No signs of acute distress noted. In stable condition.
--- NOTE | 2020-02-11 07:10 | NUR ---
NURSE NOTES: Attempted to call family to notify of the incident of patient being found on the floor with a pillow under her head, however, patient does not appear to have family listed on her face sheet.
[2020-02-11 07:12] LABS: ALANINE AMINOTRANSFERASE 13 U/L (12-78); ALBUMIN 3.8 G/DL (3.4-5.0); ALBUMIN/GLOBULIN RATIO 1.1 (1.0-2.7); ALKALINE PHOSPHATASE 69 U/L (46-116); ANION GAP 13 mmol/L (5-15); ASPARTATE AMINO TRANSFERASE 19 U/L (15-37); BILIRUBIN,TOTAL 0.6 MG/DL (0.2-1.0); BLOOD UREA NITROGEN 11 mg/dL (7-18); CALCIUM 9.5 MG/DL (8.5-10.1); CARBON DIOXIDE 25 MMOL/L (21-32); CHLORIDE 102 MMOL/L (98-107); CREATININE 0.6 MG/DL (0.55-1.30); POTASSIUM 3.9 MMOL/L (3.5-5.1); SODIUM 140 MMOL/L (136-145)
--- NOTE | 2020-02-11 07:16 | General Progress Note ---
Assessment/Plan Problem List: (1) CVA (cerebral vascular accident) ICD Codes: I63.9 - Cerebral infarction, unspecified SNOMED: 568475901 (2) Depression ICD Codes: F32.9 - Major depressive disorder, single episode, unspecified SNOMED: 57923745 (3) Suicidal ideation ICD Codes: R45.851 - Suicidal ideations SNOMED: 1346481 (4) UTI (urinary tract infection) ICD Codes: N39.0 - Urinary tract infection, site not specified SNOMED: 44067826 Status: stable, progressing Assessment/Plan: antiplt rx mri brain reviewed statin rx pt/ot/st echo ok carotids- nonflowlimiting pt/ot psych rx xray hips ordered ativan x 1 Subjective ROS Limited/Unobtainable: No Constitutional: Reports: malaise, weakness HEENT: Reports: no symptoms Cardiovascular: Reports: no symptoms Respiratory: Reports: no symptoms Gastrointestinal/Abdominal: Reports: no symptoms Genitourinary: Reports: no symptoms Neurologic/Psychiatric: Reports: anxiety Endocrine: Reports: no symptoms Hematologic/Lymphatic: Reports: no symptoms Allergies: Coded Allergies: PENICILLINS (Verified Allergy, Mild, 02/09/20) 10 YEARS AGO, MILD SYMPTOMS BUT NOT ANAPHYLACTIC.Pt unable to recall medication/specific reactions All Systems: reviewed and negative except above Subjective found on the floor this am. "everything" hurts. denies headache. states she was trying to get out of bed. no cp/sob. no palpitations. Objective Last 24 Hour Vital Signs Date Time Temp Pulse Resp B/P (MAP) Pulse Ox O2 Delivery O2 Flow Rate FiO2 02/11/20 04:00 56 02/11/20 04:00 97.9 57 20 142/80 (100) 97 02/11/20 01:01 82 23 100 Nasal Cannula 2.0 28 81 21 99 02/11/20 00:00 98.0 54 18 147/75 (99) 98 02/11/20 00:00 59 02/10/20 20:43 61 145/79 02/10/20 20:00 62 02/10/20 20:00 97.5 61 20 145/79 (101) 100 02/10/20 20:00 Room Air 02/10/20 16:00 96.9 60 20 141/86 (104) 100 02/10/20 16:00 Room Air 02/10/20 16:00 78 02/10/20 12:00 95.5 76 20 140/75 (96) 100 02/10/20 12:00 Room Air 02/10/20 12:00 72 02/10/20 08:49 75 133/57 02/10/20 08:49 75 133/57 02/10/20 08:35 75 02/10/20 08:00 97.7 54 19 133/57 (82) 100 02/10/20 08:00 Room Air Intake and Output 02/10/20 02/11/20 18:59 06:59 Intake Total 750 ml 739 ml Balance 750 ml 739 ml IV Total 750 ml 739 ml # Voids 3 Laboratory Tests 02/11/20 06:07: White Blood Count 9.0, Red Blood Count 5.28, Hemoglobin 15.6, Hematocrit 45.2, Mean Corpuscular Volume 86, Mean Corpuscular Hemoglobin 29.5, Mean Corpuscular Hemoglobin Concent 34.5, Red Cell Distribution Width 13.1, Platelet Count 294, Mean Platelet Volume 5.1L, Neutrophils (%) (Auto) 63.1, Lymphocytes (%) (Auto) 27.4, Monocytes (%) (Auto) 7.1, Eosinophils (%) (Auto) 0.7, Basophils (%) (Auto ) 1.7, Sodium Level [Pending], Potassium Level [Pending], Chloride Level [ Pending], Carbon Dioxide Level [Pending], Blood Urea Nitrogen [Pending], Creatinine [Pending], Estimat Glomerular Filtration Rate [Pending], Glucose Level [Pending], Calcium Level [Pending], Magnesium Level [Pending], Total Bilirubin [Pending], Aspartate Amino Transf (AST/SGOT) [Pending], Alanine Aminotransferase (ALT/SGPT) [Pending], Alkaline Phosphatase [Pending], Pro-B- Type Natriuretic Peptide [Pending], Total Protein [Pending], Albumin [Pending], Globulin [Pending] Height (Feet): 5 Height (Inches): 6.00 Weight (Pounds): 213 Objective General Appearance: WD/WN, no apparent distress, alert EENT: PERRL/EOMI, normal ENT inspection Neck: non-tender, normal alignment, supple Cardiovascular: normal peripheral pulses, normal rate, regular rhythm Respiratory/Chest: chest wall non-tender, lungs clear, normal breath sounds, no respiratory distress, no accessory muscle use Abdomen: normal bowel sounds, non tender, soft, no organomegaly, no mass Extremities: normal range of motion, non-tender. no hip pain with passive rom Edema: no edema noted Arm (L), no edema noted Arm (R), no edema noted Leg (L), no edema noted Leg (R), no edema noted Pedal (L), no edema noted Pedal (R), no edema noted Generalized Neurologic: alert, responsive, motor weakness - slight weakness alexia LE- ?effort Skin: normal pigmentation Lymphatic: normal anterior cervical (L), normal anterior cervical (R) Juan Parada MD Feb 11, 2020 07:16
[2020-02-11] MEDS ORDERED: LORazepam 1mg tab ORAL SCH (07:30)
--- NOTE | 2020-02-11 07:49 | NUR ---
CERTIFIED WELLNESS PROGRAM MANAGER Note: Patient was found on the floor with a pillow under her head. CERTIFIED WELLNESS PROGRAM MANAGER called. Patient's v/s at the time were: temp - 98.2, HR - 90, RR - 20, BP - 158/100, and O2 saturation - 94%. Blood sugar - 90. Asked patient if she hit her head and if she was in pain. According to the patient, she denies hitting her head and that she has generalized pain unrelated to incident. Neuro checks performed. Will continue to monitor patient. Addendum: 02/11/20 at 0752 by JACKIE REMY RN RN Wrong time.
--- NOTE | 2020-02-11 08:00 | NUR ---
NURSE NOTES: Report received from Ngoc SILVA. Patient is AOx4 and able to make needs known. Respiratory even and unlabored. Patient denies pain at this time. IV site is asymptomatic, patent, and intact. Bed is in lowest position with side rails up x2 and brakes are engaged is on. Encouraged patient to use call light when in need of assistance, pt verbalized understanding. Belongings and call light are within reach. Will continue to monitor.
--- NOTE | 2020-02-11 08:50 | NUR ---
NURSE NOTES: Patient is off unit for CT head/pelvis.
[2020-02-11] MEDS ORDERED: Sennosides 8.6mg tab ORAL PRN (09:00)
[2020-02-11] MEDS: Aspirin EC 81mg tab ORAL SCH (09:31)
[2020-02-11] MEDS: Metoprolol Tartrate 12.5mg TAB ORAL SCH ×2 (09:33→21:48)
[2020-02-11] MEDS: Heparin 5000 units/ml inj SUBQ SCH ×2 (09:34→21:47)
--- NOTE | 2020-02-11 09:38 | Diagnostic Imaging Report ---
Indication: Bilateral hip pain, status post fall, patient found on floor Technique: Noncontrast spiral acquisitions obtained through the pelvis. Multiplanar reconstructions generated. Total dose length product 426 mGycm. CTDIvol(s) 17 mGy. Dose reduction achieved using automated exposure control Comparison: none Findings: Surgical hardware is seen in the lower lumbar spine. No acute fractures. No dislocations. The joint spaces are preserved. There is evidence of prior lower abdominal midline incision. Hazy opacity to the left the incision could be related to such or could indicate mild parenchymal contusion. There is also infiltration of the bilateral buttocks subcutaneous fat. This could represent edema or mild contusion changes as well. The included pelvic viscera are unremarkable. The uterus as been removed. Impression: No evidence of acute bony trauma Prior hysterectomy Evidence of prior lower lumbar spine fusion surgery. Subcutaneous soft tissue tissue changes as described The CT scanner at [facility] is accredited by the [employer] and the scans are performed using protocols designed to limit radiation exposure to as low as reasonably achievable to attain images of sufficient resolution adequate for diagnostic evaluation.
--- NOTE | 2020-02-11 09:41 | Diagnostic Imaging Report ---
Indications: Head trauma, found on floor Technique: Spiral acquisitions obtained through the brain. Angled axial and coronal 5 x 5 mm slices were reconstructed. Total dose length product 1045 mGycm. CTDI vol(s) 53 mGy. Dose reduction achieved using automated exposure control Comparison: None. Findings: There is very mild age-related enlargement of the ventricles and extra-axial CSF spaces. There is minimal periventricular deep white matter low-attenuation is visible chronic microvascular ischemic change. Otherwise normal trinh-white differentiation. No acute intracranial hemorrhage or edema. The mastoids are clear. The calvarium is intact. Visualized orbits and sinuses are unremarkable Impression: Chronic and age-related changes. Negative for acute intracranial bleed or mass effect. The CT scanner at [facility] is accredited by the [employer] and the scans are performed using protocols designed to limit radiation exposure to as low as reasonably achievable to attain images of sufficient resolution adequate for diagnostic evaluation.
--- NOTE | 2020-02-11 09:50 | NUR ---
NURSE NOTES: Patient is observed in bed, asleep but arousable by voice. Denies pain at this time. AOx4. VSS. Will continue to monitor.
--- NOTE | 2020-02-11 10:16 | NUR ---
RADIOLOGY DEPT., CHEST X-RAY DONE.-P.DYE
--- NOTE | 2020-02-11 11:00 | NUR ---
NURSE NOTES: Patient is asleep but arousable by voice. VSS. Denies pain at this time. Will continue to monitor.
--- NOTE | 2020-02-11 11:36 | NUR ---
CASE MANAGEMENT:REVIEW 02/11/20 SI: TIA. DEPRESSION. ? TRAMADOL OVERDOSE PAROXYSMAL ATRIAL ECTOPY. SINUS ARRHYTHMIA 96.8 72 120/69 100% ON 2L/NC BNP+1224 IS: IV ROCEPHIN Q24 NORVASC PO QD ASA PO QD HEPARIN SQ Q12 PROTONIX PO QD LOPRESSOR PO Q12 SYNTHROID PO QD : TELEMETRY STATUS DCP: RETURN HOME WITH HOME HEALTH PLAN: CT HEAD AND PELVIS
--- NOTE | 2020-02-11 12:16 | Diagnostic Imaging Report ---
Indication: Abnormal chest sounds Technique: One view of the chest Comparison: none Findings: Inspiration is suboptimal. There is some atelectasis at the left lung base resulting in elevation of left hemidiaphragm. Minimal atelectasis also seen in the right lung base. The lungs pleural spaces are otherwise clear. The heart is upper limits normal in size. The aorta is tortuous Impression: Hypoventilatory exam with bibasilar atelectatic changes. No acute process otherwise
--- NOTE | 2020-02-11 12:30 | Progress Note ---
DATE: 02/10/2020 CARDIOLOGY PROGRESS NOTE SUBJECTIVE: The patient complains of some congestion and shortness of breath. No new weakness noted. Tolerating diet. At times, she feels she cannot move her legs affectively, but has been mobilizing with therapy. PHYSICAL EXAMINATION: VITAL SIGNS: Blood pressure 130/70, heart rate 50 to 86, respiratory rate 18, and afebrile. Monitored sinus and sinus bradycardia. LUNGS: Clear. CARDIAC: Regular. ABDOMEN: Soft. EXTREMITIES: No edema. IMPRESSION: 1. Urinary tract infection. 2. TIA. 3. Paroxysmal bronchospasm. 4. Hypertensive heart disease. 5. Bradycardia. PLAN: Check chest x-ray. P.r.n. bronchodilators. Decrease beta-jazmyn. Titrate antihypertensives, anti-platelet and anti-lipid drugs. Discharge planning. Marquise Hernández M.D. DR: TERESA JOB#: [id number] CC:
[2020-02-11] MEDS: cefTRIAXone 1 GM in D5W 55 ML IVPB SCH (13:27)
--- NOTE | 2020-02-11 13:57 | NUR ---
NURSE NOTES: Patient provided a family member's number: Ashely (daughter) [phone].
--- NOTE | 2020-02-11 15:57 | NUR ---
CONTACT INFORMATION Patient provided a family member's number: Ashely (daughter) [phone].
--- NOTE | 2020-02-11 17:59 | NUR ---
TURN DOWN MAN BEDSIDE SWALLOW EVALUATION PRELIMINARY REPORT (please see care activity section for complete report) TURN DOWN MAN ORDERS RECEIVED FOR BEDSIDE SWALLOW EVALUATION FROM DR. LARSON. INITIAL IMPRESSIONS: Grossly functional swallow but appears to have some s/s of at least mild pharyngeal phase dysphagia with Patient reporting odynophagia while swallowing all food and liquids. Oral motor ROM and coordination is functional, flat affect, laryngeal elevation is fair, no significant s/s of aspiration. HIGH RISK FOR POOR PO INTAKE DUE TO SIGNIFICANT BEHAVIORAL DEFICITS (SEVERE DEPRESSION/PATIENT REFUSAL) Per RN, Patients intake has been o.k., no significant overt s/s of aspiration with current diet of regular solids or thin liquids. Limited trials due to Patient requesting to rest, Patient reporting odynophagia and instances of Globus sensations, given Thin liquids and nectar thick liquids via cup sip and straw with no significant overt s/s of aspiration. Patient states preference for thin liquids. Patient refused additional PO trials despite TURN DOWN MAN max encouragement. Recommendations: 1. Continue current diet texture, TURN DOWN MAN plans to monitor need for downgrade to soft solids or chopped solids due to Patient appearing lethargic and this would minimize Patient's need for food preparation (such as cutting); type/supplements per RD. 2. Dysphagia tx and management to f/u 3x a week x 1 week 3. MBSS to further assess swallow physiology and pharyngeal function 2/2 Patient reporting odynophagia. TURN DOWN MAN educated Patient on results, recommendations, and POC. TURN DOWN MAN addressed all of Patients follow up questions. Formal report to follow. TURN DOWN MAN made RN aware of results and recommendations.
--- NOTE | 2020-02-11 20:26 | NUR ---
HAND-OFF: Report given to Ngoc SILVA. Patient is in stable condition. Endorsed plan of care.
--- NOTE | 2020-02-11 20:30 | NUR ---
NURSE NOTES: Received report from RICARDO Fletcher. Patient is asleep lying semi-melendez's; resting comfortably. Arousable to verbal and tactile stimuli. No signs of acute distress noted; denies pain at this time. On 3L nasal cannula. AOx3-4 with periods of forgetfulness. Checked IV site; patent and flushed. No erythema, bleeding, or infiltration noted. Purewick external catheter in place draining well. Bed at lowest position, brakes on, siderails up x3. Bed alarms activated for safety. Call light within reach. Will continue to monitor.
[2020-02-11] MEDS: Miralax 17gm pkt ORAL SCH (21:44)
--- NOTE | 2020-02-11 22:31 | CDS Physician Query ---
Clarification is required for compliance, coding accuracy, and to reflect severity of illness for this patient Dear Dr. Parada, Date: 02.11.20 CDS: Shawna Dhillon Confusion is documented in the neuro exam: Neurological February 07, 2020 07:01- Coma Scale Verbal Response- Confused Please indicate the nature and chronicity of the condition below: [] Metabolic Encephalopathy [] Toxic Encephalopathy [x] Toxic - Metabolic Encephalopathy [] Encephalopathy, Other [] Dementia with Delirium [] Hypoxic encephalopathy [] Posterior reversible encephalopathy syndrome [] Other: [] Not Applicable Present on Admission: [x] Yes [] No [] Clinically Undetermined Physician signature Date Please also document in your Progress Notes and/or Discharge Summary and indicate if the condition was present on admission. BJ
[2020-02-11] MEDS ORDERED: NS w/KCl 20mEq 1000ml 1,000 ML IV SCH (22:45)
--- NOTE | 2020-02-11 23:15 | Psych Consult Progress Note ---
Psychiatry Progress Note Psychiatry Progress Note Subjective The pt is doing well. calm. no behavioral issues noted. Medications Current Medications Medications (Trade) Dose Ordered Sig/Alejandro Route PRN Reason Start Time Stop Time Status Last Admin Dose Admin Acetaminophen (Tylenol) 650 mg Q6H PRN ORAL For Headache 02/11/20 04:30 03/09/20 10:25 02/11/20 12:47 Albuterol/ Ipratropium (Albuterol/ Ipratropium) 3 ml Q6HR PRN HHN Shortness of Breath 02/11/20 00:00 02/16/20 00:00 02/11/20 14:26 Amlodipine Besylate (Norvasc) 2.5 mg DAILY ORAL 02/11/20 09:00 03/09/20 08:59 02/11/20 09:32 Aspirin (Ecotrin) 81 mg DAILY ORAL 02/11/20 09:00 03/24/20 08:59 02/11/20 09:31 Ceftriaxone Sodium 1 gm/ Dextrose 55 ml @ 110 mls/hr Q24H IVPB 02/11/20 14:00 02/15/20 13:59 02/11/20 13:27 Escitalopram Oxalate (Lexapro) 20 mg DAILY ORAL 02/11/20 09:00 03/10/20 08:59 02/11/20 09:31 Heparin Sodium (Porcine) (Heparin 5000 units/ml) 5,000 units EVERY 12 HOURS SUBQ 02/11/20 09:00 03/24/20 20:59 02/11/20 21:47 Levothyroxine Sodium (Synthroid) 50 mcg DAILY@0630 ORAL 02/11/20 06:30 03/09/20 06:29 02/11/20 06:07 Metoprolol Tartrate (Lopressor) 12.5 mg Q12HR ORAL 02/11/20 09:00 05/11/20 08:59 02/11/20 21:48 Pantoprazole (Protonix) 40 mg DAILY ORAL 02/11/20 09:00 03/09/20 08:59 02/11/20 09:32 Polyethylene Glycol (Miralax) 17 gm BEDTIME ORAL 02/11/20 21:00 03/09/20 00:59 Pravastatin Sodium (Pravachol) 20 mg BEDTIME ORAL 02/11/20 21:00 03/10/20 20:59 02/11/20 21:47 Sennosides (Senokot) 8.6 mg DAILY PRN ORAL Constipation 02/11/20 09:00 03/10/20 10:27 Allergies: Coded Allergies: PENICILLINS (Verified Allergy, Mild, 02/09/20) 10 YEARS AGO, MILD SYMPTOMS BUT NOT ANAPHYLACTIC.Pt unable to recall medication/specific reactions Objective Data Height (Feet): 5 Height (Inches): 6.00 Weight (Pounds): 191 Additional Comments: Alert, oriented times self, place, situation, and date. Mood is depressed. Affect is blunted. Congruent with mood. Thought process, linear and goal oriented. Thought content, no suicidal or homicidal ideation. Cognition is impaired. Insight and judgment fair. Assessment/Plan Status: stable, progressing Assessment/Plan: ASSESSMENT: [place] I Major depressive disorder. PLAN: 1. Lexapro 20 mg in the morning 2. provided ro/Jaiden Sahu MD Feb 11, 2020 23:15
[2020-02-12] VITALS: BP 115/73
[2020-02-12 04:00] VITALS: BP 144/67
--- NOTE | 2020-02-12 07:21 | NUR ---
HAND-OFF: Report given to RICARDO Khoury. Patient is awake lying high-melendez's resting comfortably. On 3L nasal cannula. In stable condition.
[2020-02-12] MEDS: Albuterol/Ipratropium 3ml neb HHN PRN (07:28)
--- NOTE | 2020-02-12 07:30 | NUR ---
NURSE NOTES: Received pt from RICARDO Cespedes, pt is awake and alert, pt has NC 3LMP. pt is on continues heart monitoring. pt has intact iv access RH 22G SL. RT is doing BT for pt. all needs attended, bed is locked and is in the lowest position, call light within easy reach. will continue to monitor.
[2020-02-12 08:00] VITALS: BP 159/69
[2020-02-12] MEDS: Heparin 5000 units/ml inj SUBQ SCH ×2 (08:58→20:42)
[2020-02-12] MEDS: Aspirin EC 81mg tab ORAL SCH (08:58)
[2020-02-12] MEDS: Metoprolol Succinate XL 50mg tab ORAL SCH (08:59)
--- NOTE | 2020-02-12 08:59 | NUR ---
NURSE NOTES: 25mg metoprolol is wasted in med room.
--- NOTE | 2020-02-12 09:11 | NUR ---
REPORT: MERCHANDISE PRESENTATION MANAGER BEDSIDE SWALLOW EVALUATION REPORT (please see care activity section for complete report) MERCHANDISE PRESENTATION MANAGER ORDERS RECEIVED FOR BEDSIDE SWALLOW EVALUATION FROM DR. LARSON DYSPHAGIA RISK FACTORS FOR THIS 79 Y.O. FEMALE ACUTE: UTI, TIA, Paroxysmal bronchospasm, hypertensive heart disease, bradycardia, CVA, Depressions, suicidal ideation, hypertensive urgency, atrial arrhythmia, asymmetric leg swelling in extremity with prior surgical intervention, H/O: Fibromyalgia, osteoarthritis, depression, hypertension and hypertensive heart disease, prior cholecystectomy, status post left total knee replacement, hypothyroidism. VITALS ON 2L NASAL CANNULA: HR: 66 bpm; RR: 18 SP02: 100% RELEVANT MEDS: Albuterol (SOB); Protonix (GERD). Patient was seen at bedside, is on 2 L nasal cannula, VSS for the duration of the session. Per RN, Patient found down on the floor with a pillow covering head this AM; CT head and Pelvis completed. Patient appearing with a flat affect, mild difficulty rousing and maintaining alertness during evaluation due to overall lethargy. Patient is able to verbally communicate wants and needs and able to independently hold cup to drink water. Patients speech intelligibility is intact. Oral motor ROM and coordination is WNL; able to follow all 1-step and 2-step commands. INITIAL IMPRESSIONS: Grossly functional swallow but appears to have some s/s of at least mild pharyngeal phase dysphagia with Patient reporting odynophagia while swallowing all food and liquids. Oral motor ROM and coordination is functional, flat affect, laryngeal elevation is fair, no significant s/s of aspiration. HIGH RISK FOR POOR PO INTAKE DUE TO SIGNIFICANT BEHAVIORAL DEFICITS (SEVERE DEPRESSION/PATIENT REFUSAL) Per RN, Patients intake has been o.k., no significant overt s/s of aspiration with current diet of regular solids or thin liquids. Limited trials due to Patient requesting to rest, Patient reporting odynophagia and instances of Globus sensations, given Thin liquids and nectar thick liquids via cup sip and straw with no significant overt s/s of aspiration. Patient states preference for thin liquids. Patient refused additional PO trials despite MERCHANDISE PRESENTATION MANAGER max encouragement. Recommendations: 1. Continue current diet texture, MERCHANDISE PRESENTATION MANAGER plans to monitor need for downgrade to soft solids or chopped solids due to Patient appearing lethargic and this would minimize Patient's need for food preparation (such as cutting); type/supplements per RD. 2. Dysphagia tx and management to f/u 3x a week x 1 week 3. MBSS to further assess swallow physiology and pharyngeal function 2/2 Patient reporting odynophagia. MERCHANDISE PRESENTATION MANAGER educated Patient on results, recommendations, and POC. MERCHANDISE PRESENTATION MANAGER addressed all of Patients follow up questions. MERCHANDISE PRESENTATION MANAGER educated Patient and RN on results, recommendations, and POC. MERCHANDISE PRESENTATION MANAGER plans to f/u for diet tolerance and dysphagia tx.
--- NOTE | 2020-02-12 11:15 | Progress Note ---
DATE: 02/11/2020 CARDIOLOGY PROGRESS NOTE SUBJECTIVE: The patient apparently fell out of bed overnight. She was found on the floor this morning. She complained of back and buttock pain. She had a CAT scan of the brain that was unremarkable. Imaging of the pelvis revealed some soft tissue edema. OBJECTIVE: VITAL SIGNS: Blood pressure 115/66, heart rate 79, respiratory rate 20. LUNGS: Clear. CARDIAC: Regular. ABDOMEN: Soft. EXTREMITIES: No edema. No bruising. IMPRESSION: 1. Sinus bradyarrhythmias. 2. Elevated natriuretic peptide assay, likely reflects chronic diastolic congestive heart failure. 3. TIA PLAN: 1. Physical therapy evaluation. 2. Pain control. 3. Neuro-checks. 4. EKG to be obtained. 5. Optimize antihypertensive regimen. 6. Beta-jazmyn dose decreased in view of bradycardia several days ago. Marquise Hernández M.D. DR: Giorgi JOB#: [id number] CC: BJ
[2020-02-12 11:59] VITALS: BP 145/79
--- NOTE | 2020-02-12 13:05 | General Progress Note ---
Assessment/Plan Problem List: (1) CVA (cerebral vascular accident) ICD Codes: I63.9 - Cerebral infarction, unspecified SNOMED: 036251489 (2) Depression ICD Codes: F32.9 - Major depressive disorder, single episode, unspecified SNOMED: 69147616 (3) Suicidal ideation ICD Codes: R45.851 - Suicidal ideations SNOMED: 4470516 (4) UTI (urinary tract infection) ICD Codes: N39.0 - Urinary tract infection, site not specified SNOMED: 47996966 Status: stable, progressing Assessment/Plan: antiplt rx statin rx pt/ot/st echo ok carotids- nonflowlimiting pt/ot psych rx check labs and repeat UA dc planning tomorrow if mental status better Subjective ROS Limited/Unobtainable: Yes Constitutional: Reports: malaise, weakness HEENT: Reports: no symptoms Cardiovascular: Reports: no symptoms Respiratory: Reports: no symptoms Gastrointestinal/Abdominal: Reports: no symptoms Genitourinary: Reports: no symptoms Neurologic/Psychiatric: Reports: anxiety, depressed, emotional problems Endocrine: Reports: no symptoms Hematologic/Lymphatic: Reports: no symptoms Allergies: Coded Allergies: PENICILLINS (Verified Allergy, Mild, 02/09/20) 10 YEARS AGO, MILD SYMPTOMS BUT NOT ANAPHYLACTIC.Pt unable to recall medication/specific reactions All Systems: reviewed and negative except above Subjective no new complaints. no fever or chills. no sob. getting resp rx. withdrawn and nonverbal. head ct and pelvic ct negative. D/w Dtr who spoke with pt this am- agrees pt is "not normal." Objective Last 24 Hour Vital Signs Date Time Temp Pulse Resp B/P (MAP) Pulse Ox O2 Delivery O2 Flow Rate FiO2 02/12/20 11:59 97.9 69 20 145/79 (101) 97 02/12/20 11:40 84 02/12/20 09:00 Nasal Cannula 2.0 02/12/20 08:59 74 159/69 02/12/20 08:59 74 159/69 02/12/20 08:00 97.9 74 20 159/69 (99) 98 02/12/20 07:43 79 02/12/20 07:27 88 24 99 Nasal Cannula 2.0 28 85 20 97 02/12/20 04:00 60 02/12/20 04:00 96.8 71 19 144/67 (92) 100 02/12/20 00:00 97.5 56 19 115/73 (87) 100 02/12/20 00:00 58 02/11/20 21:48 76 133/68 02/11/20 21:00 Nasal Cannula 2.0 02/11/20 20:00 66 02/11/20 20:00 97.9 76 18 133/68 (89) 100 02/11/20 16:00 97.0 20 115/66 (82) 96 02/11/20 15:52 79 02/11/20 14:26 80 23 98 Nasal Cannula 2.0 28 79 20 97 02/11/20 13:30 98.0 100 Intake and Output 02/11/20 02/12/20 19:00 07:00 Intake Total 360 ml 240 ml Output Total 400 ml 1200 ml Balance -40 ml -960 ml Intake Oral 360 ml 240 ml Output Urine Total 400 ml 1200 ml # Voids 1 Height (Feet): 5 Height (Inches): 6.00 Weight (Pounds): 191 Objective General Appearance: WD/WN, no apparent distress, alert EENT: PERRL/EOMI, normal ENT inspection Neck: non-tender, normal alignment, supple Cardiovascular: normal peripheral pulses, normal rate, regular rhythm Respiratory/Chest: chest wall non-tender, lungs clear, normal breath sounds, no respiratory distress, no accessory muscle use Abdomen: normal bowel sounds, non tender, soft, no organomegaly, no mass Extremities: normal range of motion, non-tender. no hip pain with passive rom Edema: no edema noted Arm (L), no edema noted Arm (R), no edema noted Leg (L), no edema noted Leg (R), no edema noted Pedal (L), no edema noted Pedal (R), no edema noted Generalized Neurologic: alert, responsive, motor weakness - slight weakness alexia LE- ?effort Skin: normal pigmentation Lymphatic: normal anterior cervical (L), normal anterior cervical (R) Juan Parada MD Feb 12, 2020 13:05
[2020-02-12] MEDS: cefTRIAXone 1 GM in D5W 55 ML IVPB SCH (13:16)
--- NOTE | 2020-02-12 13:40 | NUR ---
TERRITORY REPRESENTATIVE DAILY TX NOTE Patient seen at bedside, alert, and able to verbally communicate wants and needs. Patient's lunch tray seen at bedside, approx 50% remaining. VSS for the duration of the session and phonation clear. VITALS on 2 L Nasal Cannula: HR: 69; RR: 20; SP02 97% Patient reports ongoing Odynophagia and Globus Sensations with PO intake, further describes sensation of 'choking' while pointing to throat. Patient reporting increased amount of oral saliva requiring use of yankauer suction for oral secretion management. Patient educated on various diet consistencies, safe swallow strategies and aspiration precautions. Patient expressed understanding. Patient given oral care supplies and educated on importance of oral hygiene. Plan: 1.Downgraded diet to Mechanical Soft-Chopped with Thin Liquids, with 1:1 assistance with tray set up; continue dietary type per previous diet order of PRANAY. 2. TERRITORY REPRESENTATIVE plans to place orders for MBSS, plan on completing tomorrow (pending on scheduling in radiology). 3. TERRITORY REPRESENTATIVE plans to continue to f/u for diet tolerance, dysphagia management/tx, and MBSS. For questions or concerns for ST, call [phone]
[2020-02-12 14:12] LABS: BASOPHILS % (AUTO) 1.5 % (0.0-2.0); HEMATOCRIT 39.9 % (37.0-47.0); HEMOGLOBIN 13.6 G/DL (12.0-16.0); LYMPHOCYTES % (AUTO) 34.6 % (20.0-45.0); MEAN CORPUSCULAR VOLUME 86 FL (80-99); MONOCYTES % (AUTO) 9.1 % (1.0-10.0); NEUTROPHILS % (AUTO) 53.8 % (45.0-75.0); PLATELET COUNT 278 K/UL (150-450); RED BLOOD COUNT 4.64 M/UL (4.20-5.40); RED CELL DISTRIBUTION WIDTH 13.2 % (11.6-14.8); WHITE BLOOD COUNT 8.8 K/UL (4.8-10.8)
[2020-02-12 14:27] LABS: ALANINE AMINOTRANSFERASE 13 U/L (12-78); ALBUMIN 3.3 G/DL (3.4-5.0); ALBUMIN/GLOBULIN RATIO 1.1 (1.0-2.7); ALKALINE PHOSPHATASE 56 U/L (46-116); ANION GAP 8 mmol/L (5-15); ASPARTATE AMINO TRANSFERASE 14 U/L (15-37); BILIRUBIN,TOTAL 0.3 MG/DL (0.2-1.0); BLOOD UREA NITROGEN 12 mg/dL (7-18); CARBON DIOXIDE 29 MMOL/L (21-32); CHLORIDE 105 MMOL/L (98-107); CREATININE 0.6 MG/DL (0.55-1.30); POTASSIUM 4.1 MMOL/L (3.5-5.1); SODIUM 142 MMOL/L (136-145)
[2020-02-12 15:54] VITALS: BP 111/72
--- NOTE | 2020-02-12 19:46 | NUR ---
HAND-OFF: Report given to RICARDO Abarca. Pt is awake and stable, Endorsed plan of care. Endorsed to F/U for U/A.
[2020-02-12 20:00] VITALS: BP 133/88
[2020-02-12] MEDS: Miralax 17gm pkt ORAL SCH (20:40)
--- NOTE | 2020-02-12 23:49 | NUR ---
NURSE NOTES: Received report from Peng Bosch RN. Pt is in stable condition, no signs or symptoms of pain or distress noted at this time. Bed in lowest position, bed alarm armed. call light within reach. Will continue to monitor closely and plan of care. Addendum: 02/12/20 at 2350 by Rima Pop RN Time stamp incorrect: Received report at 191 from Peng Bosch RN.
[2020-02-13] VITALS: BP 129/81
[2020-02-13] MEDS: Albuterol/Ipratropium 3ml neb HHN PRN ×2 (00:12→20:24)
--- NOTE | 2020-02-13 00:20 | Psych Consult Progress Note ---
Psychiatry Progress Note Psychiatry Progress Note Medications Current Medications Medications (Trade) Dose Ordered Sig/Alejandro Route PRN Reason Start Time Stop Time Status Last Admin Dose Admin Acetaminophen (Tylenol) 650 mg Q6H PRN ORAL For Headache 02/11/20 04:30 03/09/20 10:25 02/12/20 13:30 Albuterol/ Ipratropium (Albuterol/ Ipratropium) 3 ml Q6HR PRN HHN Shortness of Breath 02/11/20 00:00 02/16/20 00:00 02/13/20 00:12 Amlodipine Besylate (Norvasc) 2.5 mg DAILY ORAL 02/11/20 09:00 03/09/20 08:59 02/12/20 08:59 Aspirin (Ecotrin) 81 mg DAILY ORAL 02/11/20 09:00 03/24/20 08:59 02/12/20 08:58 Ceftriaxone Sodium 1 gm/ Dextrose 55 ml @ 110 mls/hr Q24H IVPB 02/11/20 14:00 02/15/20 13:59 02/12/20 13:16 Escitalopram Oxalate (Lexapro) 20 mg DAILY ORAL 02/11/20 09:00 03/10/20 08:59 02/12/20 08:59 Heparin Sodium (Porcine) (Heparin 5000 units/ml) 5,000 units EVERY 12 HOURS SUBQ 02/11/20 09:00 03/24/20 20:59 02/12/20 20:42 Levothyroxine Sodium (Synthroid) 50 mcg DAILY@0630 ORAL 02/11/20 06:30 03/09/20 06:29 02/12/20 06:24 Metoprolol Succinate (Toprol XL) 25 mg DAILY ORAL 02/12/20 09:00 05/12/20 08:59 02/12/20 08:59 Pantoprazole (Protonix) 40 mg DAILY ORAL 02/11/20 09:00 03/09/20 08:59 02/12/20 08:58 Polyethylene Glycol (Miralax) 17 gm BEDTIME ORAL 02/11/20 21:00 03/09/20 00:59 02/12/20 20:40 Pravastatin Sodium (Pravachol) 20 mg BEDTIME ORAL 02/11/20 21:00 03/10/20 20:59 02/12/20 20:40 Sennosides (Senokot) 8.6 mg DAILY PRN ORAL Constipation 02/11/20 09:00 03/10/20 10:27 Allergies: Coded Allergies: PENICILLINS (Verified Allergy, Mild, 02/09/20) 10 YEARS AGO, MILD SYMPTOMS BUT NOT ANAPHYLACTIC.Pt unable to recall medication/specific reactions Objective Data Height (Feet): 5 Height (Inches): 6.00 Weight (Pounds): 191 Assessment/Plan Status: stable, progressing Assessment/Plan: ASSESSMENT: [place] I Major depressive disorder. PLAN: 1. Lexapro 20 mg in the morning 2. provided ro/Jaiden Sahu MD Feb 13, 2020 00:20
[2020-02-13 04:00] VITALS: BP 154/78
[2020-02-13] MEDS ORDERED: Varibar Nectar 240ml MC PRN (06:45)
[2020-02-13] MEDS ORDERED: Varibar Honey 250ml MC PRN (06:45)
[2020-02-13] MEDS ORDERED: Varibar Pudding 230ml MC PRN (06:45)
--- NOTE | 2020-02-13 07:00 | Progress Note ---
DATE: 02/12/2020 CARDIOLOGY PROGRESS NOTE SUBJECTIVE: The patient is selectively nonverbal today. She states she has difficulty walking. I had a long discussion with her daughter. We traced back the patient's medical course over the past couple of years. She apparently had a hospitalization due to degenerative disk disease and intervention that resulted in her admission to a penitentiary facility for rehabilitation, namely [facility]. The patient's course there was suboptimal as she did not participate actively in therapies. The patient ultimately was discharged back to her daughter's care. The patient more recently was admitted to acute rehabilitation at [facility] where she stayed for 1 weeks' time. Apparently, the patient did not participate adequately in the rehabilitation plans and discharge was earlier than expected as a result. At home, the patient felt bad that she was causing her daughter too much work. The patient presumably was mobile enough to be discharged from acute rehabilitation. The patient has a history of depression, but her daughter states that she have never seen her as sad as before this admission. PHYSICAL EXAMINATION: VITAL SIGNS: Blood pressure 145/79, heart rate 69, respirations 20, afebrile. LUNGS: Clear. CARDIAC: Regular. Normal S1, S2. A 1/6 systolic murmur at base. ABDOMEN: Soft. EXTREMITIES: No edema. IMPRESSION: 1. Depression. 2. Cerebrovascular disease. 3. TIA. 4. Hypertensive heart disease. 5. Dyslipidemia. 6. Hypothyroidism 7. Vitamin D def PLAN: The patient has a history of being poorly compliant with structured rehabilitation. In addition, the patient's daughter is also concerned about the risk of infection at that facility at this time with COVID-19 crisis. Consideration of appropriate disposition is in progress now. This may include a penitentiary facility or home with daughter and home health. For now, we will add Vitamin D supplement; thyroid dose has already been increased. Marquise Hernández M.D. DR: SOFIE JOB#: [id number] CC: BJ
--- NOTE | 2020-02-13 07:16 | NUR ---
HAND-OFF: Report given to Peng Bosch RN. Pt in stable condition. Plan of care endorsed.
--- NOTE | 2020-02-13 07:30 | NUR ---
NURSE NOTES: Received pt from RICARDO Gavin, pt is awake and alert, pt is in RA, no SOB or acute respiratory distress noted. pt is on continues heart monitoring. pt has intact iv access RH 22G SL. all needs attended, bed is locked and is in the lowest position, call light within easy reach. will continue to monitor.
[2020-02-13 08:00] VITALS: BP 124/58
[2020-02-13] MEDS: Aspirin EC 81mg tab ORAL SCH (09:26)
[2020-02-13] MEDS: Metoprolol Succinate XL 50mg tab ORAL SCH (09:26)
[2020-02-13] MEDS: Heparin 5000 units/ml inj SUBQ SCH ×2 (09:27→21:01)
[2020-02-13 09:28] LABS: APPEARANCE,URINE CLEAR; BILIRUBIN, URINE NEGATIVE (NEGATIVE); COLOR,URINE PALE YELLOW; GLUCOSE, URINE (UA) NEGATIVE (NEGATIVE); KETONES,URINE NEGATIVE (NEGATIVE); LEUKOCYTE ESTERASE ,URINE NEGATIVE (NEGATIVE); NITRITE,URINE NEGATIVE (NEGATIVE); PH,URINE 6 (4.5-8.0); PROTEIN,URINE NEGATIVE (NEGATIVE); UROBILINOGEN,URINE NORMAL MG/DL (0.0-1.0)
[2020-02-13 12:00] VITALS: BP 123/61
--- NOTE | 2020-02-13 12:11 | NUR ---
CASE MANAGEMENT:REVIEW 02/13/20 SI: DEPRESSION. TIA 98.1 67 18 124/58 97% ON RA IS: LEXAPRO 20MG PO QD TOPROL PO QD IV ROCEPHIN Q24 NORVASC PO QD ASA PO QD HEPARIN SQ Q12 PROTONIX PO QD SYNTHROID PO QD : TELEMETRY STATUS DCP: FROM HOME PLAN: VIDEO SWALLOW PENDING
--- NOTE | 2020-02-13 12:23 | NUR ---
RD ASSESSMENT & RECOMMENDATIONS SEE CARE ACTIVITY FOR COMPLETE ASSESSMENT DAILY ESTIMATED NEEDS: Needs based on Cardiac 66gk abw 25-30 kcals/kg total kcals 1-1.2 g protein/kg 66-79 g total protein 25-30 mL/kg total fluid mLs NUTRITION DIAGNOSIS: Swallowing difficulty r/t dysphagia as evidenced by DIRECTOR OF GRADUATE ADMISSIONS eval, texture downgrade to ms chopped. CURRENT DIET: PRANAY now ms chopped, thin liquids PO DIET RECOMMENDATIONS: W/ variable, fair po intake, maintain PRANAY diet, texture per DIRECTOR OF GRADUATE ADMISSIONS ADDITIONAL RECOMMENDATIONS: 1) Obtain a calibrated bed scale wt 2) Add Ensure Enlive qdaily w/ variable intake 3) Monitor for acceptance on texture downgraded diet -> add snacks in b/w meals as accepted
[2020-02-13] MEDS: cefTRIAXone 1 GM in D5W 55 ML IVPB SCH (13:57)
[2020-02-13 16:00] VITALS: BP 129/73
--- NOTE | 2020-02-13 17:17 | NUR ---
MICROSOFT DYNAMICS MANAGER ARCHITECT DAILY TX NOTE: MICROSOFT DYNAM[employer] MANAGER ARCHITECT attempted to complete Modified Barium Swallow Study with Patient today, however, unable to be completed due to scheduling in radiology. MICROSOFT DYNAMICS MANAGER ARCHITECT saw Patient at bedside, alert, VSS for the duration of the session. Patient states not liking the mechanical soft chopped diet texture, further reports refusing to consume this texture. Therefore, MICROSOFT DYNAMICS MANAGER ARCHITECT ordered Patient a turkey sandwich (no cheese) for lunch to assure adequate PO intake for nutrition/hydration. MICROSOFT DYNAMICS MANAGER ARCHITECT educated Patient on purpose of downgrade to mechanical soft chopped texture Patient continues to report odynophagia with all PO. Patient educated on importance of alternating sips and swallows, taking small bites at a slow rate, and maintaining upright position with consuming PO. Patient sates understanding, however, benefits from further education. Plan: 1. Upgrade texture to Soft Solids with Thin Liquids. Continue dietary recommendations per previous diet order. 2. MICROSOFT DYNAM[employer] MANAGER ARCHITECT plans to continue to f/u and complete MBSS with Patient on Sunday (02/16/20) if Patient is still in-house. If patient is discharged over the weekend, Patient continues to benefit from MBSS as an outpatient to further evaluate swallow physiology and etiology of ongoing odynophagia. MICROSOFT DYNAMICS MANAGER ARCHITECT plans to continue to f/u for diet tolerance and MBSS if Patient is still in house. [phone]
--- NOTE | 2020-02-13 19:41 | NUR ---
HAND-OFF: Report given to RICARDO Gavin. pt is awake and astable, Endorsed plan of care.
--- NOTE | 2020-02-13 19:50 | NUR ---
NURSE NOTES: Received report from Peng Bosch RN. Pt is in bed, resting comfortably. No signs or symptoms of pain or distress noted at this time. Bed in lowest position, bed alarm armed, call light within reach. Pt instructed to use call light when assistance is needed; verbalized understanding. Will continue plan of care and close monitoring.
[2020-02-13 20:00] VITALS: BP 128/59
[2020-02-13] MEDS: Miralax 17gm pkt ORAL SCH (20:59)
--- NOTE | 2020-02-13 22:55 | Psych Consult Progress Note ---
Psychiatry Progress Note Psychiatry Progress Note Subjective the pt is depresses and withdrawn. low energy the pt believes that she is a burden to her daughter. the pt is amotivated. and sad about being dependent Medications Current Medications Medications (Trade) Dose Ordered Sig/Alejandro Route PRN Reason Start Time Stop Time Status Last Admin Dose Admin Acetaminophen (Tylenol) 650 mg Q6H PRN ORAL For Headache 02/11/20 04:30 03/09/20 10:25 02/13/20 21:00 Albuterol/ Ipratropium (Albuterol/ Ipratropium) 3 ml Q6HR PRN HHN Shortness of Breath 02/11/20 00:00 02/16/20 00:00 02/13/20 20:24 Amlodipine Besylate (Norvasc) 2.5 mg DAILY ORAL 02/11/20 09:00 03/09/20 08:59 02/13/20 09:26 Aspirin (Ecotrin) 81 mg DAILY ORAL 02/11/20 09:00 03/24/20 08:59 02/13/20 09:26 Barium Sulfate (Varibar Honey) 250 ml NOW PRN MC RAD 02/13/20 06:45 02/16/20 06:31 Barium Sulfate (Varibar [place]) 240 ml NOW PRN MC RAD 02/13/20 06:45 02/16/20 06:31 Barium Sulfate (Varibar Pudding) 230 ml NOW PRN MC RAD 02/13/20 06:45 02/16/20 06:31 Ceftriaxone Sodium 1 gm/ Dextrose 55 ml @ 110 mls/hr Q24H IVPB 02/11/20 14:00 02/15/20 13:59 02/13/20 13:57 Escitalopram Oxalate (Lexapro) 20 mg DAILY ORAL 02/11/20 09:00 03/10/20 08:59 02/13/20 09:26 Heparin Sodium (Porcine) (Heparin 5000 units/ml) 5,000 units EVERY 12 HOURS SUBQ 02/11/20 09:00 03/24/20 20:59 02/13/20 21:01 Levothyroxine Sodium (Synthroid) 50 mcg DAILY@0630 ORAL 02/11/20 06:30 03/09/20 06:29 02/13/20 06:46 Metoprolol Succinate (Toprol XL) 25 mg DAILY ORAL 02/12/20 09:00 05/12/20 08:59 02/13/20 09:26 Pantoprazole (Protonix) 40 mg DAILY ORAL 02/11/20 09:00 03/09/20 08:59 02/13/20 09:26 Polyethylene Glycol (Miralax) 17 gm BEDTIME ORAL 02/11/20 21:00 03/09/20 00:59 02/13/20 20:59 Pravastatin Sodium (Pravachol) 20 mg BEDTIME ORAL 02/11/20 21:00 03/10/20 20:59 02/13/20 20:59 Sennosides (Senokot) 8.6 mg DAILY PRN ORAL Constipation 02/11/20 09:00 03/10/20 10:27 Allergies: Coded Allergies: PENICILLINS (Verified Allergy, Mild, 02/09/20) 10 YEARS AGO, MILD SYMPTOMS BUT NOT ANAPHYLACTIC.Pt unable to recall medication/specific reactions Objective Data Height (Feet): 5 Height (Inches): 6.00 Weight (Pounds): 191 General Appearance: WD/WN, no apparent distress, alert, overweight, alert oriented x3 Appearance: no abnormalities noted Behavior Mannerisms: good eye contact Mental Status Exam - Affect: constricted Mental Status Exam - Mood: depressed Speech: clear Mental Status Exam - Thought P: logical, goal-directed Mental Status Exam - Suicidal: not present Assessment/Plan Problem List: (1) Depression ICD Codes: F32.9 - Major depressive disorder, single episode, unspecified SNOMED: 05399990 Status: stable, progressing Assessment/Plan: ASSESSMENT: [place] I Major depressive disorder. PLAN: 1. Lexapro 20 mg in the morning 2. provided ro/st 3. Welbutrin xl 150mh po Jaiden Gillespie MD Feb 13, 2020 22:55
[2020-02-14] VITALS: BP 134/78
[2020-02-14 04:00] VITALS: BP 146/79
--- NOTE | 2020-02-14 05:38 | NUR ---
NURSE NOTES: Received patient on bed, awake and verbally responsive. calm. alert and oriented x2, forgetful. denies any pain or discomfort. on nasal cannula at 3lpm. no sob. with female external catheter. iv line on the right hand, saline lock. per telegraph dispatcher," patient feels like she's choking.". reality orientation rendered. reiterated to call and ask for assistance. bed locked and in lowest position. call light and light button within easy reach. will continue plan of care.
--- NOTE | 2020-02-14 06:30 | Progress Note ---
DATE: 02/13/2020 CARDIOLOGY PROGRESS NOTE SUBJECTIVE: The patient remains withdrawn and depressed. Psych therapy appreciated, more mobile, tolerating a soft solid diet. PHYSICAL EXAMINATION: LUNGS: Clear. CARDIAC: Regular. ABDOMEN: Soft. EXTREMITIES: No edema. PLAN: Psych therapy. Skin care. Taper off beta-jazmyn. Mobilize. Discharge planning. Marquise Hernández M.D. DR: TERESA JOB#: [id number] CC:
--- NOTE | 2020-02-14 07:17 | NUR ---
HAND-OFF: Report given to RICARDO PAREDES.Patient is on bed, stable condition. not in any form of respiratory distress. plan of care endorsed.
--- NOTE | 2020-02-14 07:47 | NUR ---
NURSE NOTES: RNmade am rounds, patient is in the bed awake. no difficulty breathingnoted. pt is able to exchange greetings with the nurse, denies any pain. Right hand 22 gauge IV site in-place and intact. no infiltration noted. call light is placed within reach. Bed in locked position for safety, will continue to follow plan of care.
[2020-02-14 08:00] VITALS: BP 130/76
--- NOTE | 2020-02-14 08:44 | General Progress Note ---
Assessment/Plan Problem List: (1) CVA (cerebral vascular accident) ICD Codes: I63.9 - Cerebral infarction, unspecified SNOMED: 594236436 (2) Depression ICD Codes: F32.9 - Major depressive disorder, single episode, unspecified SNOMED: 30414290 (3) Suicidal ideation ICD Codes: R45.851 - Suicidal ideations SNOMED: 0726380 (4) UTI (urinary tract infection) ICD Codes: N39.0 - Urinary tract infection, site not specified SNOMED: 08691271 Status: stable, progressing Assessment/Plan: antiplt rx statin rx pt/ot/st echo ok carotids- nonflowlimiting pt/ot psych rx dc planning Subjective ROS Limited/Unobtainable: No Constitutional: Reports: malaise, weakness HEENT: Reports: no symptoms Cardiovascular: Reports: no symptoms Respiratory: Reports: cough Gastrointestinal/Abdominal: Reports: no symptoms Genitourinary: Reports: no symptoms Neurologic/Psychiatric: Reports: depressed, emotional problems Endocrine: Reports: no symptoms Allergies: Coded Allergies: PENICILLINS (Verified Allergy, Mild, 02/09/20) 10 YEARS AGO, MILD SYMPTOMS BUT NOT ANAPHYLACTIC.Pt unable to recall medication/specific reactions All Systems: reviewed and negative except above Subjective no new complaints. no fever or chills. no sob. getting resp rx. withdrawn but more verbal. psych noted. Objective Last 24 Hour Vital Signs Date Time Temp Pulse Resp B/P (MAP) Pulse Ox O2 Delivery O2 Flow Rate FiO2 02/14/20 04:00 97.7 61 18 146/79 (101) 98 02/14/20 04:00 55 02/14/20 00:00 52 02/14/20 00:00 97.0 59 18 134/78 (96) 96 02/13/20 21:00 Nasal Cannula 3.0 02/13/20 20:34 67 18 99 Room Air 21 02/13/20 20:24 68 18 97 Room Air 21 02/13/20 20:24 68 18 97 Room Air 21 02/13/20 20:00 97.7 65 18 128/59 (82) 97 02/13/20 16:00 98.0 81 17 129/73 (91) 99 02/13/20 15:21 63 02/13/20 12:20 56 02/13/20 12:00 97.7 78 18 123/61 (81) 98 02/13/20 09:26 67 124/58 02/13/20 09:26 67 124/58 02/13/20 09:00 Nasal Cannula 2.0 Intake and Output 02/13/20 02/14/20 19:00 07:00 Intake Total 55 ml 560 ml Output Total 1000 ml Balance 55 ml -440 ml IV Total 55 ml Other 560 ml Output Urine Total 1000 ml Height (Feet): 5 Height (Inches): 6.00 Weight (Pounds): 191 Objective General Appearance: WD/WN, no apparent distress, alert EENT: PERRL/EOMI, normal ENT inspection Neck: non-tender, normal alignment, supple Cardiovascular: normal peripheral pulses, normal rate, regular rhythm Respiratory/Chest: chest wall non-tender, lungs clear, normal breath sounds, no respiratory distress, no accessory muscle use Abdomen: normal bowel sounds, non tender, soft, no organomegaly, no mass Extremities: normal range of motion, non-tender. no hip pain with passive rom Edema: no edema noted Arm (L), no edema noted Arm (R), no edema noted Leg (L), no edema noted Leg (R), no edema noted Pedal (L), no edema noted Pedal (R), no edema noted Generalized Neurologic: alert, responsive, motor weakness - slight weakness alexia LE- ?effort Skin: normal pigmentation Lymphatic: normal anterior cervical (L), normal anterior cervical (R) Juan Parada MD Feb 14, 2020 08:44
[2020-02-14] MEDS ORDERED: BuPROPion XL 150mg tab ORAL SCH (09:00)
[2020-02-14] MEDS ORDERED: Vitamin D 1000 IU Tab ORAL SCH (09:00)
[2020-02-14] MEDS: Heparin 5000 units/ml inj SUBQ SCH (09:02)
[2020-02-14 09:03] VITALS: BP 130/76
[2020-02-14] MEDS: Aspirin EC 81mg tab ORAL SCH (09:03)
--- NOTE | 2020-02-14 11:00 | NUR ---
Patient is discharged home without any signs of distress. Patient is alert and awake. A&O X3. Respiration is even and unlabored on room air. Pt denies any pain. Belongings checked; inventory paper signed by patient. Patient left with no home medications. Skin is clear and intact. Patient is provided with after-care instructions, provided medication teaching, and instructed to follow-up with any MD's appointment; patient verbalized understanding of after-care instructions. IV site and wrist band removed. Patient escorted to the lobby. Daughter, Ashely, at the lobby waiting for pt. Ashely took pt home via a private vehicle.
--- NOTE | 2020-02-14 23:47 | Psych Consult Progress Note ---
Psychiatry Progress Note Psychiatry Progress Note Allergies: Coded Allergies: PENICILLINS (Verified Allergy, Mild, 02/09/20) 10 YEARS AGO, MILD SYMPTOMS BUT NOT ANAPHYLACTIC.Pt unable to recall medication/specific reactions Objective Data Height (Feet): 5 Height (Inches): 6.00 Weight (Pounds): 191 Assessment/Plan Problem List: (1) Depression ICD Codes: F32.9 - Major depressive disorder, single episode, unspecified SNOMED: 83230016 Status: stable, progressing Assessment/Plan: ASSESSMENT: [place] I Major depressive disorder. PLAN: 1. Lexapro 20 mg in the morning 2. provided ro/st 3. Welbutrin xl 150mh po Jaiden Gillespie MD Feb 14, 2020 23:47
--- NOTE | 2020-02-15 00:30 | Progress Note ---
DATE: 02/14/2020 CARDIOLOGY PROGRESS NOTE SUBJECTIVE: The patient is alert, interactive, and was withdrawn. She has no suicidal plan. She is anxious to return home and resume recovery. OBJECTIVE: VITAL SIGNS: Blood pressure 146/79, heart rate 61, respiratory rate 18, afebrile. LUNGS: Clear. CARDIAC: Regular. Normal S1, S2 with a fourth heart sound. ABDOMEN: Soft. EXTREMITIES: No edema. IMPRESSION: 1. TIA. 2. Depression. 3. Hypertensive heart disease. 4. Cerebrovascular disease. 5. Dyslipidemia. 6. Hypothyroidism. 7. Vitamin D deficiency. PLAN: Outpatient followup arranged. The patient discharged home with daughter and medication regimen reviewed. Physical therapy to be ordered. Marquise Hernández M.D. DR: Giorgi JOB#: [id number] CC:
--- NOTE | 2020-02-16 12:25 | Discharge Summary ---
Discharge Summary Discharge Summary _ DATE OF ADMISSION: 02/07/2020 DATE OF DISCHARGE: 02/14/2020 DISCHARGED BY: Dr. Parada REASON FOR ADMISSION: 79 years old female with past medical history of hypertensive heart disease, fibromyalgia, osteoarthritis, presented with complaints of depression and possible tramadol overdose. According to patient's daughter she developed acute onset of dysarthria , paramedics were called , and patient was transferred to emergency room for further evaluation. Patient denied chest pain or shortness of breath. No numbness or focal weakness. CT of the head revealed no acute intracranial pathology. Chronic microvascular ischemic changes noted. Laboratory work-up revealed no leukocytosis, stable hemoglobin, hematocrit and platelet count. Stable electrolytes and renal parameters. Troponin negative. EKG revealed sinus rhythm, no acute ischemic changes. Urine toxicology screen was negative. Serum alcohol less than 3. Tylenol less than 2. Urinalysis revealed pyuria and few bacteria. Patient subsequently admitted for further management. 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 Lewis [facility]: Patient admitted for possible stroke and started on n antiplatelet therapy with aspirin and statin. Lipid panel revealed elevated total cholesterol 264 , elevated LDL 134 ,HDL 105. Carotid Duplex revealed less than 50% diameter stenosis bilaterally. Venous duplex bilateral lower extremity revealed no evidence of acute DVT. Brain MRI demonstrated no evidence of acute intracranial bleeding, mass-effect effect or infarct. Echocardiogram demonstrated preserved ejection fraction of 60%. Mild left ventricular hypertrophy. No evidence of pericardial effusion. Right ventricular systolic pressure of 30. Patient was on empiric antibiotic for possible UTI. Blood pressure was managed with beta-jazmyn and calcium channel jazmyn. DVT and GI prophylaxis provided. Laboratory revealed vitamin D deficiency. Patient started on replacement with vitamin D. Patient was working with physical therapist. Fall precaution maintained. Psychiatric medication regimen was optimized as per psychiatrist. Patient clinically stabilized and was ready for discharge home. FINAL DIAGNOSES: Toxic metabolic encephalopathy Transient ischemic attack Possible UTI Hypertensive heart disease Cerebrovascular disease Dyslipidemia Major depressive disorder Hypothyroidism Vitamin D deficiency DISCHARGE MEDICATIONS: See Medication Reconciliation list. DISCHARGE INSTRUCTIONS: Patient was discharged home. Follow-up with a primary care provider in 1 week. I have been assigned to dictate discharge summary for this account. I was not involved in the patient's management. Florecita Eaton NP Feb 16, 2020 12:25
== END 2020-02-14 10:59 | disposition home or self-care (01) | DRG 917 ==
LOC: EDBD 06:45 → EMR 07:07 → EDBEDREQ 14:30 → 3E 14:31 → 2W 20:08 → 2E 02-10 22:21 → 4E 02-14 06:51
DX: T40.4X2A Poisoning by other synthetic narcotics, intentional self-harm, initial encounter (principal); G92 Toxic encephalopathy; G45.9 Transient cerebral ischemic attack, unspecified; N39.0 Urinary tract infection, site not specified; R45.851 Suicidal ideations; Y92.009 Unspecified place in unspecified non-institutional (private) residence as the place of occurrence of the external cause; F32.9 Major depressive disorder, single episode, unspecified; I16.0 Hypertensive urgency; E03.9 Hypothyroidism, unspecified; I11.0 Hypertensive heart disease with heart failure; I50.9 Heart failure, unspecified; R47.1 Dysarthria and anarthria; R29.810 Facial weakness; M79.7 Fibromyalgia; R47.81 Slurred speech; Z88.0 Allergy status to penicillin; Z88.8 Allergy status to other drugs, medicaments and biological substances; Z90.49 Acquired absence of other specified parts of digestive tract; Z96.652 Presence of left artificial knee joint; I11.9 Hypertensive heart disease without heart failure; E78.5 Hyperlipidemia, unspecified; E55.9 Vitamin D deficiency, unspecified; I49.8 Other specified cardiac arrhythmias; R60.0 Localized edema
CPT/HCPCS: 36415; 70450; 70551; 71045; 72192; 80053; 80061; 80307; 81003; 82306; 82607; 82746; 82962; 83735; 83880; 84439; 84443; 84480; 84484; 85025; 85610; 85730; 92610; 93005; 93306; 93880; 93970; 94640; 94664; 96365; 96372; 99285; G0480; J7620